=== PATIENT | male | born 1960 | race Caucasian/White ===

== ENCOUNTER 2018-12-16 18:33 | Emergency (ER) | payer MEDICAID ==
[2018-12-16] MEDS ORDERED: Sodium Chloride 0.9% 1,000 ML IV ONE (18:39)
--- NOTE | 2018-12-16 18:40 | EDM.PDOC ---
ED HPI GENERAL MEDICAL PROBLEM - General Stated Complaint: disoriented Time Seen by Provider: 12/16/18 18:33 Source of Information: Reports: Patient, EMS, Family (girlfriend ) History Limitations: Reports: Altered Mental Status - History of Present Illness INITIAL COMMENTS - FREE TEXT/NARRATIVE: 58 y.o.w.m with a H/O IDDM came by EMS to the ed deu to confusion, weakness, double vision. Pt is noncompliant with is meds. He did not take his meds for 3 days because he does not like them. Pt is oriented X 2 only, Pt is a poor historian, lives by himself, no family is present. No N/V/D, no CP or SOB or any other acute medical issues BP 144/84 Pulse 99 Pulse ox 96% on RA RR 18 Temp 36.3 Onset Date: 12/16/18 Onset Time: 16:00 Duration: Hour(s): Location: Reports: Generalized Quality: Reports: Other (disoriented) Severity: Moderate Improves with: Reports: None Worsens with: Reports: None Context: Reports: Other (IDDM) Associated Symptoms: Reports: Confusion - Related Data Allergies Allergy/AdvReac Type Severity Reaction Status Date / Time No Known Allergies Allergy Verified 12/16/18 18:47 Home Meds: Home Meds .Insulin 1 unit SUBCUT ASDIRECTED 12/16/18 [History] .Lipitor 1 tab PO ASDIRECTED 12/16/18 [History] Lurasidone HCl [Latuda] 40 mg PO DAILY 12/16/18 [History] OLANZapine [ZyPREXA Zydis] 10 mg PO DAILY 12/16/18 [History] PARoxetine HCl [Paxil] 40 mg PO DAILY 12/16/18 [History] busPIRone HCl [Buspirone HCl] 15 mg PO DAILY 12/16/18 [History] traZODone HCl [Trazodone HCl] 50 mg PO DAILY 12/16/18 [History] ED ROS GENERAL - Review of Systems Review Of Systems: Unable To Obtain (confused) ED EXAM, GENERAL - Physical Exam Exam: See Below Exam Limited By: Altered Mental Status General Appearance: Alert, Mild Distress, Obese Eye Exam: Bilateral Eye: Normal Inspection Ears: Normal External Exam Ear Exam: Bilateral Ear: Auricle Normal Nose: Normal Inspection, Normal Mucosa, No Blood Throat/Mouth: Normal Lips, Normal Voice, No Airway Compromise Head: Atraumatic, Normocephalic Neck: Normal Inspection, Supple, Non-Tender Respiratory/Chest: No Respiratory Distress, Lungs Clear, Normal Breath Sounds, No Accessory Muscle Use, Chest Non-Tender Cardiovascular: Normal Peripheral Pulses, Regular Rate, Rhythm, No Edema, No Gallop GI/Abdominal: Normal Bowel Sounds, Soft, Non-Tender, No Organomegaly, No Abnormal Bruit, No Mass, Pelvis Stable (Male) Exam: Deferred Rectal (Males) Exam: Deferred Back Exam: Normal Inspection Extremities: Normal Inspection, Normal Range of Motion Neurological: Alert, CN II-XII Intact, Disoriented, Slow to Respond, Memory Loss Remote Events Psychiatric: Normal Affect, Normal Mood Skin Exam: Warm, Dry, Intact, Normal Color, No Rash Lymphatic: No Adenopathy EKG INTERPRETATION EKG Date: 12/16/18 Time: 18:50 Rhythm: NSR Rate (Beats/Min): 97 [place]: Normal P-Wave: Present QRS: Normal ST-T: Normal QT: Normal Comparison: NA - No Prior EKG Course - Vital Signs Text/Narrative:: 58 y.o.w.m with a H/O IDDM came by EMS to the ed deu to confusion, weakness, double vision. Pt is noncompliant with is meds. He did not take his meds for 3 days because he does not like them. Pt is oriented X 2 only, Pt is a poor historian, lives by himself, no family is present. No N/V/D, no CP or SOB or any other acute medical issues BP 144/84 Pulse 99 Pulse ox 96% on RA RR 18 Temp 36.3 PE: Morbid obese 58 y.o.w.m confused to situation Labs: Pending Impression: IDDM, Hyperglycemia, noncompliance with meds, Confused, Tachycardia , Dehydration Tx: NS Pt was signed out to Dr. Alexandre at 7 pm due to shift changes, pending labs, Tx Last Recorded V/S: Last Vital Signs Temp 36.4 C 12/16/18 20:20 Pulse 104 H 12/16/18 20:20 Resp 20 12/16/18 20:20 BP 109/72 12/16/18 20:20 Pulse Ox 94 L 12/16/18 20:20 - Orders/Labs/Meds Orders: Active Orders 24 hr Category Date Time Status Blood Glucose Check, Bedside [RC] ONETIME Care 12/16/18 19:57 Active EKG Documentation Completion [RC] ASDIRECTED Care 12/16/18 18:42 Active Head wo Cont [CT] Stat Exams 12/16/18 19:10 Taken EKG 12 Lead [EK] Routine Ther 12/16/18 18:41 Ordered Labs: Laboratory Tests 12/16/18 12/16/18 12/16/18 Range/Units 18:50 18:50 18:50 WBC 7.8 (4.5-12.0) X10-3/uL RBC 5.38 (4.30-5.75) x10(6)uL Hgb 15.7 (13.5-17.8) g/dL Hct 45.2 (30.0-51.3) % MCV 84.1 (80-96) fL MCH 29.2 (27.7-33.6) pg MCHC 34.7 (32.2-35.4) g/dL RDW 12.2 (11.5-15.5) % Plt Count 158 (125-369) X10(3)uL MPV 9.4 (7.4-10.4) fL Neut % (Auto) 79.2 (46-82) % Lymph % (Auto) 6.0 L (13-37) % [place]vert % (Auto) 14.1 H (4-12) % Eos % (Auto) 0 L (1.0-5.0) % Baso % (Auto) 1 (0-2) % Neut # (Auto) 6.2 (1.6-8.3) # Lymph # (Auto) 0.5 L (0.6-5.0) # Calvert # (Auto) 1.1 (0.0-1.3) # Eos # (Auto) 0.0 (0.0-0.8) # Baso # (Auto) 0.0 (0.0-0.2) # PT 10.9 (8.7-11.1) INR 1.12 (0.89-1.13) Sodium 135 (135-145) mmol/L Potassium 4.2 (3.5-5.3) mmol/L Chloride 100 (100-110) mmol/L Carbon Dioxide 20 L (21-32) mmol/L BUN 16 (7-18) mg/dL Creatinine 0.9 (0.70-1.30) mg/dL Est Cr Clr Drug Dosing TNP Estimated GFR (MDRD) > 60 (>60) BUN/Creatinine Ratio 17.8 (9-20) Glucose 409 H* (80-116) mg/dL POC Glucose (80-116) mg/dL Hemoglobin A1c (4.5-6.2) % Lactic Acid (0.4-2.2) mmol/L Calcium 9.0 (8.6-10.2) mg/dL Magnesium 1.5 L (1.8-2.5) mg/dL Troponin I (<0.017-0.056) ng/mL Urine Color (YELLOW) Urine Appearance (CLEAR) Urine pH (5.0-6.5) Ur Specific Snow (1.010-1.025) Urine Protein (NEGATIVE) mg/dL Urine Glucose (UA) (NORMAL) mg/dL Urine Ketones (NEGATIVE) mg/dL Urine Occult Blood (NEGATIVE) Urine Nitrite (NEGATIVE) Urine Bilirubin (NEGATIVE) Urine Urobilinogen (NEGATIVE) mg/dL Ur Leukocyte Esterase (NEGATIVE) Urine RBC (0-5) Urine WBC (0-5) Ur Squamous Epith Cells (NS,R,O) Urine Bacteria (NS) 12/16/18 12/16/18 12/16/18 Range/Units 18:50 18:50 18:50 WBC (4.5-12.0) X10-3/uL RBC (4.30-5.75) x10(6)uL Hgb (13.5-17.8) g/dL Hct (30.0-51.3) % MCV (80-96) fL MCH (27.7-33.6) pg MCHC (32.2-35.4) g/dL RDW (11.5-15.5) % Plt Count (125-369) X10(3)uL MPV (7.4-10.4) fL Neut % (Auto) (46-82) % Lymph % (Auto) (13-37) % [place] % (Auto) (4-12) % Eos % (Auto) (1.0-5.0) % Baso % (Auto) (0-2) % Neut # (Auto) (1.6-8.3) # Lymph # (Auto) (0.6-5.0) # Calvert # (Auto) (0.0-1.3) # Eos # (Auto) (0.0-0.8) # Baso # (Auto) (0.0-0.2) # PT (8.7-11.1) INR (0.89-1.13) Sodium (135-145) mmol/L Potassium (3.5-5.3) mmol/L Chloride (100-110) mmol/L Carbon Dioxide (21-32) mmol/L BUN (7-18) mg/dL Creatinine (0.70-1.30) mg/dL Est Cr Clr Drug Dosing Estimated GFR (MDRD) (>60) BUN/Creatinine Ratio (9-20) Glucose (80-116) mg/dL POC Glucose (80-116) mg/dL Hemoglobin A1c 10.3 H (4.5-6.2) % Lactic Acid 1.4 (0.4-2.2) mmol/L Calcium (8.6-10.2) mg/dL Magnesium (1.8-2.5) mg/dL Troponin I < 0.017 L (<0.017-0.056) ng/mL Urine Color (YELLOW) Urine Appearance (CLEAR) Urine pH (5.0-6.5) Ur Specific Snow (1.010-1.025) Urine Protein (NEGATIVE) mg/dL Urine Glucose (UA) (NORMAL) mg/dL Urine Ketones (NEGATIVE) mg/dL Urine Occult Blood (NEGATIVE) Urine Nitrite (NEGATIVE) Urine Bilirubin (NEGATIVE) Urine Urobilinogen (NEGATIVE) mg/dL Ur Leukocyte Esterase (NEGATIVE) Urine RBC (0-5) Urine WBC (0-5) Ur Squamous Epith Cells (NS,R,O) Urine Bacteria (NS) 12/16/18 12/16/18 Range/Units 19:40 19:57 WBC (4.5-12.0) X10-3/uL RBC (4.30-5.75) x10(6)uL Hgb (13.5-17.8) g/dL Hct (30.0-51.3) % MCV (80-96) fL MCH (27.7-33.6) pg MCHC (32.2-35.4) g/dL RDW (11.5-15.5) % Plt Count (125-369) X10(3)uL MPV (7.4-10.4) fL Neut % (Auto) (46-82) % Lymph % (Auto) (13-37) % [place] % (Auto) (4-12) % Eos % (Auto) (1.0-5.0) % Baso % (Auto) (0-2) % Neut # (Auto) (1.6-8.3) # Lymph # (Auto) (0.6-5.0) # [place] # (Auto) (0.0-1.3) # Eos # (Auto) (0.0-0.8) # Baso # (Auto) (0.0-0.2) # PT (8.7-11.1) INR (0.89-1.13) Sodium (135-145) mmol/L Potassium (3.5-5.3) mmol/L Chloride (100-110) mmol/L Carbon Dioxide (21-32) mmol/L BUN (7-18) mg/dL Creatinine (0.70-1.30) mg/dL Est Cr Clr Drug Dosing Estimated GFR (MDRD) (>60) BUN/Creatinine Ratio (9-20) Glucose (80-116) mg/dL POC Glucose 297 H (80-116) mg/dL Hemoglobin A1c (4.5-6.2) % Lactic Acid (0.4-2.2) mmol/L Calcium (8.6-10.2) mg/dL Magnesium (1.8-2.5) mg/dL Troponin I (<0.017-0.056) ng/mL Urine Color Yellow (YELLOW) Urine Appearance Clear (CLEAR) Urine pH 5.0 (5.0-6.5) Ur Specific Snow 1.015 (1.010-1.025) Urine Protein Negative (NEGATIVE) mg/dL Urine Glucose (UA) >1000 H (NORMAL) mg/dL Urine Ketones 50 H (NEGATIVE) mg/dL Urine Occult Blood Negative (NEGATIVE) Urine Nitrite Negative (NEGATIVE) Urine Bilirubin Negative (NEGATIVE) Urine Urobilinogen Normal (NEGATIVE) mg/dL Ur Leukocyte Esterase Negative (NEGATIVE) Urine RBC 0-5 (0-5) Urine WBC 0-5 (0-5) Ur Squamous Epith Cells Rare (NS,R,O) Urine Bacteria Rare H (NS) Meds: Medications Discontinued Medications Generic Name Dose Route Start Last Admin Trade Name Lavelle PRN Reason Stop Dose Admin Sodium Chloride 1,000 mls @ 999 mls/hr 12/16/18 18:39 12/16/18 19:00 Normal Saline IV 12/16/18 19:39 999 mls/hr .BOLUS ONE Administration Insulin Human Regular 10 unit 12/16/18 19:09 12/16/18 19:14 Humulin R IV 12/16/18 19:10 10 units ONETIME ONE Administration Departure - Departure Time of Disposition: 21:00 Disposition: Home, Self-Care 01 Condition: Good Clinical Impression: IDDM (insulin dependent diabetes mellitus) - Discharge Information Instructions: Hyperglycemia, [id number] Referrals: Hugo Naylor MD [Primary Care Provider] - 12/18/18 Forms: ED Department Discharge Care Plan Goals: Take medications as prescribed. Follow up with primary director of healthcare systems early next week. - My Orders Last 24 Hours: My Active Orders 12/16/18 18:41 EKG 12 Lead [EK] Routine 12/16/18 18:42 EKG Documentation Completion [RC] ASDIRECTED - Assessment/Plan Last 24 Hours: My Active Orders 12/16/18 18:41 EKG 12 Lead [EK] Routine 12/16/18 18:42 EKG Documentation Completion [RC] ASDIRECTED
[2018-12-16] MEDS ORDERED: Insulin Regular, Human 100 Units/ML 3 ML Vial IV ONE (19:09)
[2018-12-16 19:10] LABS: HEMOGLOBIN A1C 10.3 % (4.5-6.2)
--- NOTE | 2018-12-16 20:54 | ER ---
DATE SEEN: 12/16/2018 REASON FOR VISIT: Alteration of mental status. HISTORY OF PRESENT ILLNESS: Sharan is a 58-year-old who was seen by Dr. Hutchins. He walked in here because his girlfriend thought he has been confused. He himself complains he feels weak in the legs and was unable to support himself and was stumbling at home. Sharan has a history of type 2 diabetes, poorly controlled, and has not been taking his medications. He also has a history of bipolar disorder and depression on several medications. He has a mild headache, mild cough, but denies fever. Neither does he have any chest pain or shortness of breath. SOCIAL HISTORY: He quit smoking years ago. He drinks occasionally. ALLERGIES: No known allergies. PAST MEDICAL HISTORY: [facility] PHYSICAL EXAMINATION: GENERAL: When I examined him, he is not in distress. VITAL SIGNS: Initial blood pressure is normal, pulse 98, temperature 97.4. HEENT: Head: Normal size. Eyes: PERRL. NECK: Supple. CHEST: Clear. CARDIOVASCULAR: Normal. EXTREMITIES: No edema. MENTAL STATUS: Alert. Dysthymic affect. No signs of abhishek. No hallucinations. LABORATORY DATA: He had a blood glucose of 409. Hemoglobin A1c of 10.3, CO2 of 20. White cell count was normal. DIAGNOSTIC DATA: CT of the head pending, thought to be normal. IMPRESSION: 1. Generalized weakness. 2. Hyperglycemia. 3. Bipolar disorder. PLAN: 2 L of normal saline was given. Insulin was given at 10 units. Glucose came down to 297. I will have him walk in the [place] and he was stable and I discharged him in the company of his girlfriend to follow up with Dr. Naylor on Tuesday. Return to the ED with any worsening symptoms. /[id number] ANTONIO/FAIZA
== END 2018-12-16 20:40 | disposition home or self-care (01) ==
LOC: FB.ED 18:33
DX: E11.65 Type 2 diabetes mellitus with hyperglycemia (principal); E86.0 Dehydration; E66.01 Morbid (severe) obesity due to excess calories; R00.0 Tachycardia, unspecified; Z79.899 Other long term (current) drug therapy; Z91.14 Patient's other noncompliance with medication regimen; Z79.4 Long term (current) use of insulin
CPT/HCPCS: 36415; 70450; 80048; 81001; 82962; 83036; 83605; 83735; 84484; 85025; 85610; 93005; 96361; 96374; 99285-25; J1815-GY; J7030

== ENCOUNTER 2020-06-24 09:45 | Inpatient (IN) | payer MEDICAID ==
[2020-06-24] MEDS ORDERED: Sodium Chloride 0.9% 1,000 ML IV ONE ×2 (10:10→18:00)
[2020-06-24] MEDS ORDERED: Sodium Chloride 0.9% 1,000 ML IV SCH ×2 (10:15→11:46)
[2020-06-24 10:32] LABS: HEMOGLOBIN A1C 10.3 % (<5.7)
--- NOTE | 2020-06-24 10:35 | EDM.PDOC ---
ED HPI GENERAL MEDICAL PROBLEM - General Chief Complaint: Abdominal Pain Stated Complaint: NAUSEA,VOMITING Time Seen by Provider: 06/24/20 10:00 Source of Information: Reports: Patient History Limitations: Reports: No Limitations - History of Present Illness INITIAL COMMENTS - FREE TEXT/NARRATIVE: Sharan comes into [facility] with a 3 day hx of lower abdominal pain radiating into the chest, associated with bouts of nausea and vomiting of dark emeses. Sxs were of gradual onset, suprapubic with some back pain, escalating into the chest over time. There has been no diarrhea, voiding sxs, palpitations, SOB, or sxs of GERD. He is a Type II DM on insulin, with no prior abdominal surgery. Treatments PROGRAM ARRANGER: Reports: IV/IO Abdominal Pain Score (Numeric/FACES): 9 - Related Data Allergies Allergy/AdvReac Type Severity Reaction Status Date / Time No Known Allergies Allergy Verified 06/24/20 09:56 Home Meds: Home Meds Lurasidone HCl [Latuda] 40 mg PO DAILY 12/16/18 [History] PARoxetine HCl [Paxil] 40 mg PO DAILY 12/16/18 [History] busPIRone HCl [Buspirone HCl] 15 mg PO DAILY 12/16/18 [History] traZODone HCl [Trazodone HCl] 100 mg PO BEDTIME 12/16/18 [History] Albuterol [Ventolin HFA] 2 puff Q4HR PRN 06/24/20 [History] Insulin NPH Hum/Reg Insulin Hm [Novolin 70-30 Flexpen] 10 unit SQ QPM 06/24/20 [History] Insulin NPH Hum/Reg Insulin Hm [Novolin 70-30 Flexpen] 20 unit SQ DAILY 06/24/20 [History] OLANZapine [Zyprexa] 10 mg PO DAILY 06/24/20 [History] atorvaSTATin Calcium [Lipitor] 40 mg PO DAILY 06/24/20 [History] lisinopriL [Lisinopril] 5 mg PO DAILY 06/24/20 [History] metFORMIN [Glucophage] 1,000 mg PO BIDMEALS 06/24/20 [History] Past Medical History HEENT History: Reports: Impaired Vision Respiratory History: Reports: Bronchitis, Recurrent Psychiatric History: Reports: Depression Endocrine/Metabolic History: Reports: Diabetes, Type I Social & Family History - Family History Family Medical History: Noncontributory - Caffeine Use Caffeine Use: Reports: None ED ROS GENERAL - Review of Systems Review Of Systems: See Below Constitutional: Reports: Malaise, Weakness, Decreased Appetite HEENT: Reports: No Symptoms Respiratory: Reports: No Symptoms Cardiovascular: Reports: Chest Pain Endocrine: Reports: Fatigue, High Glucose GI/Abdominal: Reports: Abdominal Pain, Anorexia, Decreased Appetite, Nausea, Vomiting : Reports: No Symptoms Musculoskeletal: Reports: Back Pain Skin: Reports: No Symptoms Neurological: Reports: No Symptoms Psychiatric: Reports: No Symptoms Hematologic/Lymphatic: Reports: No Symptoms Immunologic: Reports: No Symptoms ED EXAM, GI/ABD - Physical Exam Exam: See Below Exam Limited By: No Limitations General Appearance: Alert, WD/WN, Mild Distress Eyes: Bilateral: Normal Appearance, EOMI Ears: Normal External Exam Nose: Normal Inspection Throat/Mouth: Normal Inspection, Normal Oropharynx, Normal Voice, No Airway Compromise Head: Normocephalic Neck: Normal Inspection, Supple, Non-Tender Respiratory/Chest: Lungs Clear, Normal Breath Sounds, Chest Non-Tender Cardiovascular: Normal Peripheral Pulses, Regular Rate, Rhythm, No Murmur GI/Abdominal Exam: No Organomegaly, No Mass, Distended, Guarding (R abdomen tenderness without rebound or rigidity; tenderness over McBurney's point), Abnormal Bowel Sounds (decreased) (Male) Exam: Normal Inspection, Normal Prostate Rectal (Males) Exam: Normal Exam, Prostate Normal Back Exam: Normal Inspection Extremities: Normal Inspection Neurological: Alert, Oriented, CN II-XII Intact, No Motor/Sensory Deficits Psychiatric: Normal Affect, Flat Affect Skin Exam: Warm, Dry, Intact, Normal Color, No Rash Lymphatic: No Adenopathy Course - Vital Signs Text/Narrative:: Following assessment, an IV was started in the LUE, and 1.5 L NS was administered over the next 2 hours. Labs included: Hgb 16.9 gm, WBC 22,200 with L shift, plts adequate; Cr 1.3, BUN 14, nonFBS 523 mg%, Aic 10.3; lactic a 3.4, CRP 16.9, ALT mildly elevated; UA 4+ glucose; Covid 19 Screen NEG; Abd US: GB enlarged with stones and some pericholic fluid; Abd Pelvic CT w IV contrast: GB enlarged with some limited stranding, CD normal size; IV Humulin Insulin 10 U and 8 U divided over 2 hours to control DM; Dr Hernandez contacted with case and will assume care. Last Recorded V/S: Last Vital Signs Temp 36.7 C 06/24/20 11:06 Pulse 107 H 06/24/20 11:06 Resp 20 06/24/20 11:06 BP 157/78 H 06/24/20 11:06 Pulse Ox 97 06/24/20 11:06 - Orders/Labs/Meds Orders: Active Orders 24 hr Category Date Time Status Patient Status Manage Transfer [TRANSFER] Routine ADT 06/24/20 13:13 Ordered EKG Documentation Completion [RC] ASDIRECTED Care 06/24/20 10:11 Active Shabazz Catheter Insertion [Insert Urinary Catheter] [OM. Care 06/24/20 10:45 Ordered PC] Q24H Urinary Catheter Assessment [RC] QSHIFT Care 06/24/20 10:38 Active Abdomen Ltd [US] Stat Exams 06/24/20 11:50 Taken CULTURE BLOOD [BC] Urgent Lab 06/24/20 10:53 Ordered CULTURE BLOOD [BC] Urgent Lab 06/24/20 10:53 Ordered Dextrose 50% in Water Med 06/24/20 10:36 Active 50 ml IVPUSH ASDIRECTED PRN Dextrose 50% in Water Med 06/24/20 12:01 Active 50 ml IVPUSH ASDIRECTED PRN Glucagon,Human Recombinant [GlucaGen] Med 06/24/20 10:36 Active 1 mg IM ASDIRECTED PRN Glucagon,Human Recombinant [GlucaGen] Med 06/24/20 12:01 Active 1 mg IM ASDIRECTED PRN Piperacillin/Tazobactam [Zosyn] 3.375 gm Med 06/24/20 13:15 Active Sodium Chloride 0.9% [Normal Saline] 50 ml IV Q6H Piperacillin/Tazobactam [Zosyn] 3.375 gm Med 06/24/20 19:15 Active Sodium Chloride 0.9% [Normal Saline] 50 ml IV Q6H Sodium Chloride 0.9% [Normal Saline] 1,000 ml Med 06/24/20 11:46 Active IV ASDIRECTED Sodium Chloride 0.9% [Saline Flush] Med 06/24/20 10:10 Active 10 ml FLUSH ASDIRECTED PRN Blood Culture x2 Reflex Set [OM.PC] Urgent Oth 06/24/20 10:53 Ordered Peripheral IV Insertion Adult [OM.PC] Routine Oth 06/24/20 10:10 Ordered EKG 12 Lead [EK] Routine Ther 06/24/20 10:10 Ordered Medication Orders Dextrose/Water (Dextrose 50% In Water) 50 ml IVPUSH ASDIRECTED PRN PRN Reason: Hypoglycemia Dextrose/Water (Dextrose 50% In Water) 50 ml IVPUSH ASDIRECTED PRN PRN Reason: Hypoglycemia Glucagon (Glucagen) 1 mg IM ASDIRECTED PRN PRN Reason: Hypoglycemia Glucagon (Glucagen) 1 mg IM ASDIRECTED PRN PRN Reason: Hypoglycemia Sodium Chloride (Normal Saline) 1,000 mls @ 250 mls/hr IV ASDIRECTED CRISTINA Last Admin: 06/24/20 11:50 Dose: 250 mls/hr Documented by: FATUMA Piperacillin Sod/Tazobactam (Sod 3.375 gm/ Sodium Chloride) 50 mls @ 100 mls/hr IV Q6H CRISTINA Piperacillin Sod/Tazobactam (Sod 3.375 gm/ Sodium Chloride) 50 mls @ 100 mls/hr IV Q6H CRISTINA Sodium Chloride (Saline Flush) 10 ml FLUSH ASDIRECTED PRN PRN Reason: Keep Vein Open Last Admin: 06/24/20 11:38 Dose: 10 ml Documented by: FATUMA Labs: Laboratory Tests 06/24/20 06/24/20 06/24/20 Range/Units 09:55 09:57 09:57 WBC 22.2 H (4.5-12.0) X10-3/uL RBC 5.86 H (4.30-5.75) x10(6)uL Hgb 16.9 (13.5-17.8) g/dL Hct 50.6 (30.0-51.3) % MCV 86.3 (80-96) fL MCH 28.8 (27.7-33.6) pg MCHC 33.4 (32.2-35.4) g/dL RDW 12.4 (11.5-15.5) % Plt Count 241 (125-369) X10(3)uL MPV 9.8 (7.4-10.4) fL Add Manual Diff Yes Neutrophils % (Manual) 84 H (46-82) % Band Neutrophils % 4 (0-6) % Lymphocytes % (Manual) 6 L (13-37) % Monocytes % (Manual) 6 (4-12) % Sodium 133 L (135-145) mmol/L Potassium 4.9 (3.5-5.3) mmol/L Chloride 94 L D (100-110) mmol/L Carbon Dioxide 17 L (21-32) mmol/L BUN 14 (7-18) mg/dL Creatinine 1.3 (0.70-1.30) mg/dL Est Cr Clr Drug Dosing 54.53 mL/min Estimated GFR (MDRD) 56 L (>60) BUN/Creatinine Ratio 10.8 (9-20) Glucose 523 H* D (80-116) mg/dL POC Glucose (74-100) mg/dL Hemoglobin A1c (<5.7) % Lactic Acid (0.4-2.0) mmol/L Calcium 10.7 H (8.6-10.2) mg/dL Total Bilirubin 1.1 (0.1-1.3) mg/dL AST 15 (5-25) IU/L ALT 39 H (12-36) U/L Alkaline Phosphatase 97 (56-112) IU/L Troponin I (4.0-60.3) pg/mL C-Reactive Protein (0.5-0.9) mg/dL Total Protein 7.6 (6.0-8.0) g/dL Albumin 3.9 (3.2-4.6) g/dL Globulin 3.7 g/dL Albumin/Globulin Ratio 1.1 Lipase 93 (73-393) U/L Urine Color (YELLOW) Urine Appearance (CLEAR) Urine pH (5.0-6.5) Ur Specific Brilliant (1.010-1.025) Urine Protein (NEGATIVE) mg/dL Urine Glucose (UA) (NORMAL) mg/dL Urine Ketones (NEGATIVE) mg/dL Urine Occult Blood (NEGATIVE) Urine Nitrite (NEGATIVE) Urine Bilirubin (NEGATIVE) Urine Urobilinogen (NEGATIVE) mg/dL Ur Leukocyte Esterase (NEGATIVE) Urine RBC (0-5) Urine WBC (0-5) Ur Squamous Epith Cells (NS,R,O) Urine Bacteria (NS) SARS-CoV-2 RNA (NANCY) (NEGATIVE) 06/24/20 06/24/20 06/24/20 Range/Units 09:57 09:57 09:57 WBC (4.5-12.0) X10-3/uL RBC (4.30-5.75) x10(6)uL Hgb (13.5-17.8) g/dL Hct (30.0-51.3) % MCV (80-96) fL MCH (27.7-33.6) pg MCHC (32.2-35.4) g/dL RDW (11.5-15.5) % Plt Count (125-369) X10(3)uL MPV (7.4-10.4) fL Add Manual Diff Neutrophils % (Manual) (46-82) % Band Neutrophils % (0-6) % Lymphocytes % (Manual) (13-37) % Monocytes % (Manual) (4-12) % Sodium (135-145) mmol/L Potassium (3.5-5.3) mmol/L Chloride (100-110) mmol/L Carbon Dioxide (21-32) mmol/L BUN (7-18) mg/dL Creatinine (0.70-1.30) mg/dL Est Cr Clr Drug Dosing mL/min Estimated GFR (MDRD) (>60) BUN/Creatinine Ratio (9-20) Glucose (80-116) mg/dL POC Glucose (74-100) mg/dL Hemoglobin A1c 10.3 H (<5.7) % Lactic Acid 3.4 H* (0.4-2.0) mmol/L Calcium (8.6-10.2) mg/dL Total Bilirubin (0.1-1.3) mg/dL AST (5-25) IU/L ALT (12-36) U/L Alkaline Phosphatase (56-112) IU/L Troponin I 4.5 (4.0-60.3) pg/mL C-Reactive Protein 16.9 H* (0.5-0.9) mg/dL Total Protein (6.0-8.0) g/dL Albumin (3.2-4.6) g/dL Globulin g/dL Albumin/Globulin Ratio Lipase (73-393) U/L Urine Color (YELLOW) Urine Appearance (CLEAR) Urine pH (5.0-6.5) Ur Specific Brilliant (1.010-1.025) Urine Protein (NEGATIVE) mg/dL Urine Glucose (UA) (NORMAL) mg/dL Urine Ketones (NEGATIVE) mg/dL Urine Occult Blood (NEGATIVE) Urine Nitrite (NEGATIVE) Urine Bilirubin (NEGATIVE) Urine Urobilinogen (NEGATIVE) mg/dL Ur Leukocyte Esterase (NEGATIVE) Urine RBC (0-5) Urine WBC (0-5) Ur Squamous Epith Cells (NS,R,O) Urine Bacteria (NS) SARS-CoV-2 RNA (NANCY) (NEGATIVE) 06/24/20 06/24/20 06/24/20 Range/Units 10:40 10:50 11:48 WBC (4.5-12.0) X10-3/uL RBC (4.30-5.75) x10(6)uL Hgb (13.5-17.8) g/dL Hct (30.0-51.3) % MCV (80-96) fL MCH (27.7-33.6) pg MCHC (32.2-35.4) g/dL RDW (11.5-15.5) % Plt Count (125-369) X10(3)uL MPV (7.4-10.4) fL Add Manual Diff Neutrophils % (Manual) (46-82) % Band Neutrophils % (0-6) % Lymphocytes % (Manual) (13-37) % Monocytes % (Manual) (4-12) % Sodium (135-145) mmol/L Potassium (3.5-5.3) mmol/L Chloride (100-110) mmol/L Carbon Dioxide (21-32) mmol/L BUN (7-18) mg/dL Creatinine (0.70-1.30) mg/dL Est Cr Clr Drug Dosing mL/min Estimated GFR (MDRD) (>60) BUN/Creatinine Ratio (9-20) Glucose (80-116) mg/dL POC Glucose 368 H (74-100) mg/dL Hemoglobin A1c (<5.7) % Lactic Acid (0.4-2.0) mmol/L Calcium (8.6-10.2) mg/dL Total Bilirubin (0.1-1.3) mg/dL AST (5-25) IU/L ALT (12-36) U/L Alkaline Phosphatase (56-112) IU/L Troponin I (4.0-60.3) pg/mL C-Reactive Protein (0.5-0.9) mg/dL Total Protein (6.0-8.0) g/dL Albumin (3.2-4.6) g/dL Globulin g/dL Albumin/Globulin Ratio Lipase (73-393) U/L Urine Color Yellow (YELLOW) Urine Appearance Clear (CLEAR) Urine pH 5.0 (5.0-6.5) Ur Specific Brilliant 1.020 (1.010-1.025) Urine Protein Negative (NEGATIVE) mg/dL Urine Glucose (UA) >1000 H (NORMAL) mg/dL Urine Ketones 50 H (NEGATIVE) mg/dL Urine Occult Blood Negative (NEGATIVE) Urine Nitrite Negative (NEGATIVE) Urine Bilirubin Negative (NEGATIVE) Urine Urobilinogen Normal (NEGATIVE) mg/dL Ur Leukocyte Esterase Negative (NEGATIVE) Urine RBC 0-5 (0-5) Urine WBC 0-5 (0-5) Ur Squamous Epith Cells Rare (NS,R,O) Urine Bacteria Not seen (NS) SARS-CoV-2 RNA (NANCY) Negative (NEGATIVE) Meds: Medications Generic Name Dose Route Start Last Admin Trade Name Freq PRN Reason Stop Dose Admin Dextrose/Water 50 ml 06/24/20 10:36 Dextrose 50% In Water IVPUSH ASDIRECTED PRN Hypoglycemia Dextrose/Water 50 ml 06/24/20 12:01 Dextrose 50% In Water IVPUSH ASDIRECTED PRN Hypoglycemia Glucagon 1 mg 06/24/20 10:36 Glucagen IM ASDIRECTED PRN Hypoglycemia Glucagon 1 mg 06/24/20 12:01 Glucagen IM ASDIRECTED PRN Hypoglycemia Sodium Chloride 1,000 mls @ 250 mls/hr 06/24/20 11:46 06/24/20 11:50 Normal Saline IV 250 mls/hr ASDIRECTED CRISTINA Administration Piperacillin Sod/Tazobactam 50 mls @ 100 mls/hr 06/24/20 13:15 Sod 3.375 gm/ Sodium Chloride IV Q6H CRISTINA Piperacillin Sod/Tazobactam 50 mls @ 100 mls/hr 06/24/20 19:15 Sod 3.375 gm/ Sodium Chloride IV Q6H CRISTINA Sodium Chloride 10 ml 06/24/20 10:10 06/24/20 11:38 Saline Flush FLUSH 10 ml ASDIRECTED PRN Administration Keep Vein Open Discontinued Medications Generic Name Dose Route Start Last Admin Trade Name Freq PRN Reason Stop Dose Admin Hydromorphone HCl 2 mg 06/24/20 13:03 Dilaudid IVPUSH 06/24/20 13:04 ONETIME ONE Sodium Chloride 1,000 mls @ 999 mls/hr 06/24/20 10:15 Normal Saline IV ASDIRECTED CRISTINA Sodium Chloride 1,000 mls @ 999 mls/hr 06/24/20 10:10 06/24/20 10:10 Normal Saline IV 06/24/20 11:10 999 mls/hr .BOLUS ONE Administration Insulin Human Regular 10 unit 06/24/20 10:36 06/24/20 10:55 Humulin R IV 06/24/20 10:37 10 units ONETIME ONE Administration Insulin Human Regular 8 unit 06/24/20 12:01 Humulin R IV 06/24/20 12:02 ONETIME ONE Iopamidol 100 ml 06/24/20 11:01 06/24/20 11:30 Isovue-370 (76%) IV 06/24/20 11:02 100 ml . DIRECTED ONE Administration Departure - Departure Time of Disposition: 13:17 Disposition: Admitted As Inpatient 66 Condition: Fair Clinical Impression: Cholecystitis, acute with cholelithiasis Qualifiers: Biliary obstruction: without biliary obstruction Qualified Code(s): K80.00 - C alculus of gallbladder with acute cholecystitis without obstruction - Discharge Information *PRESCRIPTION DRUG MONITORING PROGRAM REVIEWED*: Not Applicable *COPY OF PRESCRIPTION DRUG MONITORING REPORT IN PATIENT TATUM: Not Applicable Referrals: Hugo Naylor MD [Primary Care Provider] - Forms: ED Department Discharge Sepsis Event Note (ED) - Evaluation Sepsis Screening Result: Possible Severe Sepsis Risk - Focused Exam Vital Signs: Vital Signs Temp Temp Pulse Resp BP Pulse Ox 06/24/20 11:06 36.7 C 107 H 20 157/78 H 97 06/24/20 10:25 37.3 C 108 H 20 152/94 H 97 06/24/20 09:45 36.7 C 114 H 20 138/83 98 - Problem List & Annotations (1) IDDM (insulin dependent diabetes mellitus) SNOMED Code(s): 06840691 Code(s): E11.9 - TYPE 2 DIABETES MELLITUS WITHOUT COMPLICATIONS; Z79.4 - [employer] ADVANCED (CURRENT) USE OF INSULIN Status: Acute Current Visit: No Annotation/Comment:: Monitor BS, add Insulin as directed (2) Cholecystitis, acute with cholelithiasis SNOMED Code(s): 39973967 Code(s): K80.00 - CALCULUS OF GALLBLADDER W ACUTE CHOLECYST W/O OBSTRUCTION Status: Acute Current Visit: Yes Annotation/Comment:: Per General Surgery Qualifiers: Biliary obstruction: without biliary obstruction Qualified Code(s): K80.00 - Calculus of gallbladder with acute cholecystitis without obstruction - Problem List Review Problem List Initiated/Reviewed/Updated: Yes - My Orders Last 24 Hours: My Active Orders 06/24/20 10:10 Sodium Chloride 0.9% [Saline Flush] 10 ml FLUSH ASDIRECTED PRN Peripheral IV Insertion Adult [OM.PC] Routine EKG 12 Lead [EK] Routine 06/24/20 10:11 EKG Documentation Completion [RC] ASDIRECTED 06/24/20 10:36 Dextrose 50% in Water 50 ml IVPUSH ASDIRECTED PRN Glucagon,Human Recombinant [GlucaGen] 1 mg IM ASDIRECTED PRN 06/24/20 10:38 Urinary Catheter Assessment [RC] QSHIFT 06/24/20 10:45 Shabazz Catheter Insertion [Insert Urinary Catheter] [OM.PC] Q24H 06/24/20 10:53 CULTURE BLOOD [BC] Urgent CULTURE BLOOD [BC] Urgent Blood Culture x2 Reflex Set [OM.PC] Urgent 06/24/20 11:46 Sodium Chloride 0.9% [Normal Saline] 1,000 ml IV ASDIRECTED 06/24/20 11:50 Abdomen Ltd [US] Stat 06/24/20 12:01 Dextrose 50% in Water 50 ml IVPUSH ASDIRECTED PRN Glucagon,Human Recombinant [GlucaGen] 1 mg IM ASDIRECTED PRN 06/24/20 13:13 Patient Status Manage Transfer [TRANSFER] Routine - Assessment/Plan Last 24 Hours: My Active Orders 06/24/20 10:10 Sodium Chloride 0.9% [Saline Flush] 10 ml FLUSH ASDIRECTED PRN Peripheral IV Insertion Adult [OM.PC] Routine EKG 12 Lead [EK] Routine 06/24/20 10:11 EKG Documentation Completion [RC] ASDIRECTED 06/24/20 10:36 Dextrose 50% in Water 50 ml IVPUSH ASDIRECTED PRN Glucagon,Human Recombinant [GlucaGen] 1 mg IM ASDIRECTED PRN 06/24/20 10:38 Urinary Catheter Assessment [RC] QSHIFT 06/24/20 10:45 Shabazz Catheter Insertion [Insert Urinary Catheter] [OM.PC] Q24H 06/24/20 10:53 CULTURE BLOOD [BC] Urgent CULTURE BLOOD [BC] Urgent Blood Culture x2 Reflex Set [OM.PC] Urgent 06/24/20 11:46 Sodium Chloride 0.9% [Normal Saline] 1,000 ml IV ASDIRECTED 06/24/20 11:50 Abdomen Ltd [US] Stat 06/24/20 12:01 Dextrose 50% in Water 50 ml IVPUSH ASDIRECTED PRN Glucagon,Human Recombinant [GlucaGen] 1 mg IM ASDIRECTED PRN 06/24/20 13:13 Patient Status Manage Transfer [TRANSFER] Routine Plan: Per General Surgery
[2020-06-24] MEDS ORDERED: Glucagon,Human Recombinant 1 MG Vial IM PRN ×3 (10:36→19:29)
[2020-06-24] MEDS ORDERED: 50% Dextrose in Water 50 ML Syringe IVPUSH PRN ×3 (10:36→19:29)
[2020-06-24] MEDS ORDERED: Insulin Regular, Human 100 Units/ML 3 ML Vial IV ONE ×2 (10:36→12:01)
[2020-06-24] MEDS ORDERED: Iopamidol 755 Mg/ML 100 ML Bottle IV ONE (11:01)
--- NOTE | 2020-06-24 11:04 | CR ---
INDICATION: Abdominal pain, COVID positive one month prior. CHEST ONE VIEW: An AP portable upright view of the chest 06/24/20 was compared with 04/10/20 and 04/08/20, again revealing the heart to be normal in size. The aorta is tortuous. At this time a definite active infiltrate or effusion was not identified. IMPRESSION: No acute process. MTDD
[2020-06-24] MEDS: Sodium Chloride 0.9% 10 ML Syringe FLUSH PRN (11:38)
--- NOTE | 2020-06-24 12:32 | CT ---
INDICATION: Right-sided pain, question appendicitis. CT ABDOMEN AND PELVIS WITH CONTRAST: Spiral 3.75 mm axial section were obtained through the abdomen and pelvis with 100 mL Isovue-370 at 2 mL per second with sagittal and coronal reconstructions 06/24/20 - no comparison. There is some probable minimal linear atelectatic changes in the lingula with no active infiltrate or effusion suggested. There may also be some very minimal atelectatic change at the right lower lobe although minimal active patchy infiltration is difficult to entirely exclude with this appearance. The heart did not appear enlarged. The pericardium was unremarkable. The liver had a normal appearance. The gallbladder is enlarged measuring a maximum of 10.9 cm with multiple small calculi present. There is also indistinctness of the wall of the gallbladder with pericholecystic fat stranding, especially inferiorly. The findings raise question of acute cholecystitis. This should be correlated clinically. The common bile duct was normal in caliber. The pancreas, spleen, adrenal glands, and for the most part the kidneys, appear to be normal (there is question of a moderate size calculus in a calyx of the upper pole of the right kidney measuring a maximum of approximately 6.3 mm, and a tiny probable simple cyst of the lateral cortex of the upper pole of the left kidney, as well as a possible tiny calculus in the lower pole of the left kidney). The pancreas appears normal. No retroperitoneal mass was seen. There is some retroperitoneal lymphadenopathy which is mild and nonspecific. The appendix appeared normal visualized on axial images 73 through 78, and coronal images 59 through 51. No evidence of appendicitis is noted, no abscess was seen in that area, no fat stranding was seen in that area. No evidence of bowel obstruction or free air was identified. There is some fluid in bowel loops and the stomach which is nonspecific. No additional organomegaly, mass lesions, or free fluid collections were identified in the abdomen or pelvis. Shabazz catheter is noted in place in the urinary bladder. The prostate was not enlarged. Calcifications are noted in the abdominal aorta, iliac and femoral arteries. IMPRESSION: 1. Enlarged gallbladder with calculi and some pericholecystic fat stranding, as well as suggestion of thickening of the wall, findings are compatible with acute cholecystitis and should be correlated clinically. Ultrasound of the gallbladder would be confirmatory as felt to be clinically necessary. 2. ASD. 3. Normal appearing appendix. 4. Tiny cyst upper pole left kidney and probable calculi in both kidneys - lower pole left kidney and upper pole right kidney. Report was given in person to Dr. Sierra at 1144 hours. [facility]
[2020-06-24] MEDS ORDERED: HYDROmorphone 2 MG/ML SDV IVPUSH ONE (13:03)
--- NOTE | 2020-06-24 13:11 | PCM.CONS ---
H&P History of Present Illness - General Date of Service: 06/24/20 Source of Information: Patient History Limitations: Reports: No Limitations - History of Present Illness Symptom Onset Date: 06/21/20 Location: Reports: Abdomen (RUQ) Severity: Moderate Worsens with: Reports: Eating, Movement Associated Symptoms: Reports: Loss of Appetite, Nausea/Vomiting Abdominal Pain Score (Numeric/FACES): 9 - Related Data Allergies/Adverse Reactions: Allergies Allergy/AdvReac Type Severity Reaction Status Date / Time No Known Allergies Allergy Verified 06/24/20 09:56 Home Medications: Home Meds Lurasidone HCl [Latuda] 40 mg PO DAILY 12/16/18 [History] PARoxetine HCl [Paxil] 40 mg PO DAILY 12/16/18 [History] busPIRone HCl [Buspirone HCl] 15 mg PO DAILY 12/16/18 [History] traZODone HCl [Trazodone HCl] 100 mg PO BEDTIME 12/16/18 [History] Albuterol [Ventolin HFA] 2 puff Q4HR PRN 06/24/20 [History] Insulin NPH Hum/Reg Insulin Hm [Novolin 70-30 Flexpen] 10 unit SQ QPM 06/24/20 [History] Insulin NPH Hum/Reg Insulin Hm [Novolin 70-30 Flexpen] 20 unit SQ DAILY 06/24/20 [History] OLANZapine [Zyprexa] 10 mg PO DAILY 06/24/20 [History] atorvaSTATin Calcium [Lipitor] 40 mg PO DAILY 06/24/20 [History] lisinopriL [Lisinopril] 5 mg PO DAILY 06/24/20 [History] metFORMIN [Glucophage] 1,000 mg PO BIDMEALS 06/24/20 [History] Past Medical History HEENT History: Reports: Impaired Vision Cardiovascular History: Reports: High Cholesterol, Hypertension Respiratory History: Reports: Bronchitis, Recurrent Neurological History: Reports: Concussion, Neuropathy, Diabetic Psychiatric History: Reports: Depression Endocrine/Metabolic History: Reports: Diabetes, Type I - Infectious Disease History Infectious Disease History: Reports: Measles, Mumps, Novel Coronavirus - Past Surgical History Head Surgeries/Procedures: Reports: None HEENT Surgical History: Reports: Adenoidectomy, Tonsillectomy GI Surgical History: Reports: Colonoscopy, EGD Neurological Surgical History: Reports: None Social & Family History - Family History Family Medical History: Noncontributory - Tobacco Use Tobacco Use Status *Q: Never Tobacco User - Caffeine Use Caffeine Use: Reports: None - Alcohol Use Days Per Week of Alcohol Use: 1 Number of Drinks Per Day: 2 Total Drinks Per Week: 2 - Recreational Drug Use Recreational Drug Use: No H&P Review of Systems - Review of Systems: Review Of Systems: See Below Pulmonary: Reports: No Symptoms Cardiovascular: Reports: No Symptoms Gastrointestinal: Reports: Abdominal Pain, Vomiting Genitourinary: Reports: No Symptoms Neurological: Reports: No Symptoms Exam - Exam Exam: See Below - Vital Signs Vital Signs: Last Vital Signs Temp 98.0 F 06/24/20 11:06 Pulse 107 H 06/24/20 11:06 Resp 20 06/24/20 11:06 BP 157/78 H 06/24/20 11:06 Pulse Ox 97 06/24/20 11:06 Weight: 86.183 kg - Exam General: Alert, Oriented Lungs: Clear to Auscultation, Normal Respiratory Effort Cardiovascular: Regular Rate, Regular Rhythm GI/Abdominal Exam: Tender (in RUQ). No: Hernia, Mass - Patient Data Lab Results Last 24 hrs: Laboratory Results - last 24 hr 06/24/20 06/24/20 06/24/20 Range/Units 09:55 09:57 09:57 WBC 22.2 H (4.5-12.0) X10-3/uL RBC 5.86 H (4.30-5.75) x10(6)uL Hgb 16.9 (13.5-17.8) g/dL Hct 50.6 (30.0-51.3) % MCV 86.3 (80-96) fL MCH 28.8 (27.7-33.6) pg MCHC 33.4 (32.2-35.4) g/dL RDW 12.4 (11.5-15.5) % Plt Count 241 (125-369) X10(3)uL MPV 9.8 (7.4-10.4) fL Add Manual Diff Yes Neutrophils % (Manual) 84 H (46-82) % Band Neutrophils % 4 (0-6) % Lymphocytes % (Manual) 6 L (13-37) % Monocytes % (Manual) 6 (4-12) % Sodium 133 L (135-145) mmol/L Potassium 4.9 (3.5-5.3) mmol/L Chloride 94 L D (100-110) mmol/L Carbon Dioxide 17 L (21-32) mmol/L BUN 14 (7-18) mg/dL Creatinine 1.3 (0.70-1.30) mg/dL Est Cr Clr Drug Dosing 54.53 mL/min Estimated GFR (MDRD) 56 L (>60) BUN/Creatinine Ratio 10.8 (9-20) Glucose 523 H* D (80-116) mg/dL POC Glucose (74-100) mg/dL Hemoglobin A1c (<5.7) % Lactic Acid (0.4-2.0) mmol/L Calcium 10.7 H (8.6-10.2) mg/dL Total Bilirubin 1.1 (0.1-1.3) mg/dL AST 15 (5-25) IU/L ALT 39 H (12-36) U/L Alkaline Phosphatase 97 (56-112) IU/L Troponin I (4.0-60.3) pg/mL C-Reactive Protein (0.5-0.9) mg/dL Total Protein 7.6 (6.0-8.0) g/dL Albumin 3.9 (3.2-4.6) g/dL Globulin 3.7 g/dL Albumin/Globulin Ratio 1.1 Lipase 93 (73-393) U/L Urine Color (YELLOW) Urine Appearance (CLEAR) Urine pH (5.0-6.5) Ur Specific [place] (1.010-1.025) Urine Protein (NEGATIVE) mg/dL Urine Glucose (UA) (NORMAL) mg/dL Urine Ketones (NEGATIVE) mg/dL Urine Occult Blood (NEGATIVE) Urine Nitrite (NEGATIVE) Urine Bilirubin (NEGATIVE) Urine Urobilinogen (NEGATIVE) mg/dL Ur Leukocyte Esterase (NEGATIVE) Urine RBC (0-5) Urine WBC (0-5) Ur Squamous Epith Cells (NS,R,O) Urine Bacteria (NS) SARS-CoV-2 RNA (NANCY) (NEGATIVE) 06/24/20 06/24/20 06/24/20 Range/Units 09:57 09:57 09:57 WBC (4.5-12.0) X10-3/uL RBC (4.30-5.75) x10(6)uL Hgb (13.5-17.8) g/dL Hct (30.0-51.3) % MCV (80-96) fL MCH (27.7-33.6) pg MCHC (32.2-35.4) g/dL RDW (11.5-15.5) % Plt Count (125-369) X10(3)uL MPV (7.4-10.4) fL Add Manual Diff Neutrophils % (Manual) (46-82) % Band Neutrophils % (0-6) % Lymphocytes % (Manual) (13-37) % Monocytes % (Manual) (4-12) % Sodium (135-145) mmol/L Potassium (3.5-5.3) mmol/L Chloride (100-110) mmol/L Carbon Dioxide (21-32) mmol/L BUN (7-18) mg/dL Creatinine (0.70-1.30) mg/dL Est Cr Clr Drug Dosing mL/min Estimated GFR (MDRD) (>60) BUN/Creatinine Ratio (9-20) Glucose (80-116) mg/dL POC Glucose (74-100) mg/dL Hemoglobin A1c 10.3 H (<5.7) % Lactic Acid 3.4 H* (0.4-2.0) mmol/L Calcium (8.6-10.2) mg/dL Total Bilirubin (0.1-1.3) mg/dL AST (5-25) IU/L ALT (12-36) U/L Alkaline Phosphatase (56-112) IU/L Troponin I 4.5 (4.0-60.3) pg/mL C-Reactive Protein 16.9 H* (0.5-0.9) mg/dL Total Protein (6.0-8.0) g/dL Albumin (3.2-4.6) g/dL Globulin g/dL Albumin/Globulin Ratio Lipase (73-393) U/L Urine Color (YELLOW) Urine Appearance (CLEAR) Urine pH (5.0-6.5) Ur Specific [place] (1.010-1.025) Urine Protein (NEGATIVE) mg/dL Urine Glucose (UA) (NORMAL) mg/dL Urine Ketones (NEGATIVE) mg/dL Urine Occult Blood (NEGATIVE) Urine Nitrite (NEGATIVE) Urine Bilirubin (NEGATIVE) Urine Urobilinogen (NEGATIVE) mg/dL Ur Leukocyte Esterase (NEGATIVE) Urine RBC (0-5) Urine WBC (0-5) Ur Squamous Epith Cells (NS,R,O) Urine Bacteria (NS) SARS-CoV-2 RNA (NANCY) (NEGATIVE) 06/24/20 06/24/20 06/24/20 Range/Units 10:40 10:50 11:48 WBC (4.5-12.0) X10-3/uL RBC (4.30-5.75) x10(6)uL Hgb (13.5-17.8) g/dL Hct (30.0-51.3) % MCV (80-96) fL MCH (27.7-33.6) pg MCHC (32.2-35.4) g/dL RDW (11.5-15.5) % Plt Count (125-369) X10(3)uL MPV (7.4-10.4) fL Add Manual Diff Neutrophils % (Manual) (46-82) % Band Neutrophils % (0-6) % Lymphocytes % (Manual) (13-37) % Monocytes % (Manual) (4-12) % Sodium (135-145) mmol/L Potassium (3.5-5.3) mmol/L Chloride (100-110) mmol/L Carbon Dioxide (21-32) mmol/L BUN (7-18) mg/dL Creatinine (0.70-1.30) mg/dL Est Cr Clr Drug Dosing mL/min Estimated GFR (MDRD) (>60) BUN/Creatinine Ratio (9-20) Glucose (80-116) mg/dL POC Glucose 368 H (74-100) mg/dL Hemoglobin A1c (<5.7) % Lactic Acid (0.4-2.0) mmol/L Calcium (8.6-10.2) mg/dL Total Bilirubin (0.1-1.3) mg/dL AST (5-25) IU/L ALT (12-36) U/L Alkaline Phosphatase (56-112) IU/L Troponin I (4.0-60.3) pg/mL C-Reactive Protein (0.5-0.9) mg/dL Total Protein (6.0-8.0) g/dL Albumin (3.2-4.6) g/dL Globulin g/dL Albumin/Globulin Ratio Lipase (73-393) U/L Urine Color Yellow (YELLOW) Urine Appearance Clear (CLEAR) Urine pH 5.0 (5.0-6.5) Ur Specific [place] 1.020 (1.010-1.025) Urine Protein Negative (NEGATIVE) mg/dL Urine Glucose (UA) >1000 H (NORMAL) mg/dL Urine Ketones 50 H (NEGATIVE) mg/dL Urine Occult Blood Negative (NEGATIVE) Urine Nitrite Negative (NEGATIVE) Urine Bilirubin Negative (NEGATIVE) Urine Urobilinogen Normal (NEGATIVE) mg/dL Ur Leukocyte Esterase Negative (NEGATIVE) Urine RBC 0-5 (0-5) Urine WBC 0-5 (0-5) Ur Squamous Epith Cells Rare (NS,R,O) Urine Bacteria Not seen (NS) SARS-CoV-2 RNA (NANCY) Negative (NEGATIVE) Result Diagrams: 06/24/20 09:57 06/24/20 09:57 Ángel Results Last 24 hrs: Microbiology 06/24/20 10:45 Stool Occult Blood (ÁNGEL) - Final Stool / Feces Sepsis Event Note - Evaluation Sepsis Screening Result: Possible Severe Sepsis Risk - Focused Exam Vital Signs: Vital Signs Temp Temp Pulse Resp BP Pulse Ox 06/24/20 11:06 98.0 F 107 H 20 157/78 H 97 06/24/20 10:25 99.1 F 108 H 20 152/94 H 97 06/24/20 09:45 98.1 F 114 H 20 138/83 98 Consult PN Assessment/Plan Procedures: Procedures ASSAY OF LACTIC ACID (12/16/18) ASSAY OF MAGNESIUM (12/16/18) ASSAY OF TROPONIN QUANT (12/16/18) COMPLETE CBC W/AUTO DIFF WBC (12/16/18) CT HEAD/BRAIN W/O DYE (12/16/18) ELECTROCARDIOGRAM TRACING (12/16/18) EMERGENCY DEPT VISIT (12/16/18) EMERGENCY DEPT VISIT (12/16/18) GLUCOSE BLOOD TEST (12/16/18) GLYCOSYLATED HEMOGLOBIN TEST (12/16/18) HYDRATE IV INFUSION ADD-ON (12/16/18) METABOLIC PANEL TOTAL CA (12/16/18) PROTHROMBIN TIME (12/16/18) ROUTINE VENIPUNCTURE (12/16/18) THER/PROPH/DIAG INJ IV PUSH (12/16/18) URINALYSIS AUTO W/SCOPE (12/16/18) (1) Cholecystitis, acute with cholelithiasis SNOMED Code(s): 95640937 Code(s): K80.00 - CALCULUS OF GALLBLADDER W ACUTE CHOLECYST W/O OBSTRUCTION Current Visit: Yes Problem List Initiated/Reviewed/Updated: Yes My Orders Last 24 Hours: My Active Orders 06/24/20 13:03 HYDROmorphone [Dilaudid] 2 mg IVPUSH ONETIME ONE 06/24/20 13:15 Piperacillin/Tazobactam [Zosyn] 3.375 gm Sodium Chloride 0.9% [Normal Saline] 50 ml IV Q6H Will proceed with lap radha, possible open today.Risks and complications reviewed, consent obtained.
[2020-06-24] MEDS ORDERED: Piperacillin/Tazobactam 3.375 GM in Sodium Chloride 0.9% 50 ML IV SCH (13:15)
[2020-06-24] MEDS ORDERED: Ondansetron 4 MG/2 ML SDV IVPUSH ONE ×2 (14:13→18:00)
--- NOTE | 2020-06-24 14:51 | US ---
INDICATION: Abdominal pain. Possible cholecystitis. Suspicious gallbladder on CT. RIGHT UPPER QUADRANT/GALLBLADDER ULTRASOUND: Utilizing 2-D realtime and color flow imaging as well as duplex Doppler spectral analysis, evaluation of the right upper quadrant revealed slightly echogenic appearance of the liver, raising question of fatty liver. No focal liver lesions were demonstrated. The gallbladder measured 9.6 cm x 3.5 x 3 cm with some pericholecystic fluid and slightly thickened wall, as well as a very positive ultrasonic Coronel sign at a level of 9 out of 10 with multiple calculi present in the neck of the gallbladder. Findings were felt to be compatible with acute cholecystitis and should be correlated clinically in that regard. Common bile duct was normal in caliber at 4.2 mm. IVC was phasic. Right kidney appeared normal - however - there is suggestion of an upper middle pole calculus measuring 6.3 mm on the previous CT in the right kidney. No mass lesions or additional organomegaly was seen. IMPRESSION: 1. Cholelithiasis with findings compatible with acute cholecystitis. 2. Renal lithiasis, not able to be confirmed by ultrasound suggested on CT of the same day. Report was called to Dr. Sierra at 1240 hours. [facility]
[2020-06-24] MEDS ORDERED: HYDROmorphone 2 MG/ML SDV IVPUSH PRN (17:56)
--- NOTE | 2020-06-24 17:56 | PCM.OPNOTE ---
- General Post-Op/Procedure Note Date of Surgery/Procedure: 06/24/20 Operative Procedure(s): Lap [place] Findings: Acute gangrenous Cholecystitis Pre Op Diagnosis: Acute cholecystitis and Cholelithiasis Post-Op Diagnosis: Same Anesthesia Technique: General ET Tube Primary Surgeon: Sina Hernandez Pathology: GB and bile culture EBL in mLs: 50 Complications: None Condition: Good Free Text/Narrative:: Intake & Output 06/24/20 06/24/20 06/24/20 06:59 14:59 22:59 Output Total 1250 Balance -1250
[2020-06-24] MEDS ORDERED: Rocuronium 100 MG/10 ML MDV IV ONE (18:00)
[2020-06-24] MEDS ORDERED: fentaNYL 100 MCG/2 ML SDV IV ONE (18:00)
[2020-06-24] MEDS ORDERED: Propofol 200 MG/20 ML SDV IV ONE (18:00)
[2020-06-24] MEDS ORDERED: Sugammadex Sodium 200 MG/2 ML VIAL IV ONE (18:00)
[2020-06-24] MEDS ORDERED: Naloxone 0.4 MG/ML SDV IV ONE (18:00)
[2020-06-24] MEDS ORDERED: Acetaminophen 1,000 MG/100 ML Infusion Bottle Premix IV ONE (18:00)
[2020-06-24] MEDS ORDERED: Succinylcholine 200 MG/10 ML MDV IV ONE (18:00)
[2020-06-24] MEDS ORDERED: Metoprolol Tartrate 5 MG/5 ML SDV IV ONE (18:00)
[2020-06-24] MEDS ORDERED: Lidocaine 2% 5 ML SDV INJECT ONE (18:00)
[2020-06-24] MEDS: Lactated Ringers 1,000 ML IV SCH (19:40)
[2020-06-24] MEDS: Piperacillin/Tazobactam 3.375 GM in Sodium Chloride 0.9% 50 ML IV SCH (20:02)
--- NOTE | 2020-06-24 22:45 | PCM.OPNOTE ---
- General Post-Op/Procedure Note Date of Surgery/Procedure: 06/24/20 Operative Procedure(s): Lap appy Findings: Acute appy Pre Op Diagnosis: acute Appendicitis Post-Op Diagnosis: Same Anesthesia Technique: General ET Tube Primary Surgeon: Sina Hernandez Pathology: Appy EBL in mLs: 10 Complications: None Condition: Good Free Text/Narrative:: Intake & Output 06/24/20 06/24/20 06/24/20 06:59 14:59 22:59 Output Total 1250 Balance -1250
[2020-06-25] MEDS: Acetaminophen/HYDROcodone 325-5 MG Tab PO PRN (00:13)
[2020-06-25] MEDS: Piperacillin/Tazobactam 3.375 GM in Sodium Chloride 0.9% 50 ML IV SCH ×4 (00:18→19:17)
[2020-06-25] MEDS: Lactated Ringers 1,000 ML IV SCH ×2 (04:30→16:34)
--- NOTE | 2020-06-25 08:16 | OR ---
DATE OF OPERATION: 06/24/2020 SURGEON: Sina Hernandez MD PREOPERATIVE DIAGNOSIS: Acute cholecystitis and cholelithiasis. POSTOPERATIVE DIAGNOSIS: Acute gangrenous cholecystitis and cholelithiasis. PROCEDURE: Laparoscopic cholecystectomy. ANESTHESIA: General. ESTIMATED BLOOD LOSS: 50 to 100 mL. PROCEDURE IN DETAIL: The patient was brought to the operating room, where general endotracheal anesthesia was administered. The abdomen was clipped, prepped with ChloraPrep and draped sterilely. An infraumbilical incision was made and extended into the peritoneal cavity without difficulty. The Jack cannulator was introduced and pneumoperitoneum obtained. Remaining three 5 mm ports were placed in the usual positions. The patient was placed in reverse Trendelenburg position and rotated to the left. The gallbladder was covered with omentum that was taken down with blunt dissection to expose of beefy red, thickened gallbladder with gangrene on the fundus and neck portion. This was tense and unable to be grasped, so I aspirated this with the trocar and sent the bile for culture. Gallbladder was then grasped and retracted cephalad. Thickened inflamed peritoneum was then taken down with a blunt dissection, and electrocautery. I was able to dissect out the neck of the gallbladder onto the cystic duct and separate the cystic duct from the cystic artery. Once the cystic artery anatomy was defined clearly, this was doubly clipped proximally and once distally and then transected. This allowed me to further clean off the neck of the gallbladder and cystic duct and remove some fibrous tissue so that an Endo clip could be placed across this. The cystic duct was milked back into the gallbladder, then doubly clipped proximally and once distally and then transected. The gallbladder was then removed from the bed of the liver using electrocautery with some difficulty because of thickened edema and some oozing that was controlled with electrocautery. Once the gallbladder was completely freed up, was placed in an Endopouch and brought out through the umbilical incision site. Right upper quadrant was thoroughly irrigated and inspected and return was clear and hemostasis assured. There was a lot of inflammation in the bed of the gallbladder that had been oozing, so I placed a Nu-Knit Surgicel in the gallbladder bed. The ports were removed under direct vision and remained hemostatic. Jack was removed and pneumoperitoneum evacuated completely. The umbilical fascia was closed with [id number] #0 Vicryl. Skin was closed with #4-0 Vicryl subcuticular sutures. Benzoin and Steri-Strips were placed and Band-Aids applied. The patient tolerated procedure well. He returned to postanesthesia in stable condition. /[id number] SHEEBA/FAIZA
[2020-06-25] MEDS ORDERED: Insulin Lispro 100 Unit/ML 3 ML KwikPen SUBCUT ONE (08:17)
[2020-06-25] MEDS: Insulin Lispro 100 Unit/ML 3 ML KwikPen SUBCUT SCH ×3 (08:21→18:18)
[2020-06-25] MEDS ORDERED: Piperacillin/Tazobactam 3.375 GM in Sodium Chloride 0.9% 50 ML IV SCH (08:34)
[2020-06-25] MEDS ORDERED: Albuterol 8 GM Inhaler INH PRN (08:34)
[2020-06-25] MEDS ORDERED: Insulin Lispro 100 Unit/ML 3 ML KwikPen SUBCUT SCH (08:34)
[2020-06-25] MEDS: PARoxetine 20 MG Tab PO SCH (10:25)
[2020-06-25] MEDS: OLANZapine 5 MG Tab PO SCH (10:26)
[2020-06-25] MEDS ORDERED: 50% Dextrose in Water 50 ML Syringe IVPUSH PRN (10:26)
[2020-06-25] MEDS ORDERED: Glucagon,Human Recombinant 1 MG Vial IM PRN (10:26)
[2020-06-25] MEDS ORDERED: Insulin Glargine,Human Rec. Analog 100 Units/ML 3 ML Pen SUBCUT ONE (11:40)
[2020-06-25] MEDS: Insulin Glargine,Human Rec. Analog 100 Units/ML 3 ML Pen SUBCUT SCH (11:42)
[2020-06-25] MEDS: Ondansetron 4 MG/2 ML SDV IVPUSH PRN ×2 (12:14→19:22)
[2020-06-25] MEDS: Sodium Chloride 0.9% 10 ML Syringe FLUSH PRN ×2 (12:18→13:50)
--- NOTE | 2020-06-25 13:17 | CONS ---
DATE OF CONSULTATION: 06/25/2020 REASON FOR CONSULTATION: Review of medications, care, and diabetes. HISTORY OF PRESENT ILLNESS: Sharan Canada is a 60-year-old male admitted through the ER on 06/24/2020, was seen by Dr. Chandana Sierra. Presented with 3-day history of lower abdominal pain radiating to chest, bouts of nausea and vomiting, dark emesis, and increasing discomfort. Health issues include diabetes mellitus, ongoing care. He is on a host of psychotropics. X-ray revealed no pathology, CT abdomen and pelvis revealed a large gallbladder with suspicion for cholecystitis, normal appendix, and benign kidney findings. He was found to have an acute gallbladder. He was seen by Dr. Hernandez in Surgery, underwent operative intervention on 06/24/2020. Had a very necrotic angry gallbladder. Expect a short-term stay. Sugars remain moderately elevated. MEDICATIONS: Upon admission include: 1. Atorvastatin 40 mg 1 p.o. daily, hyperlipidemia. 2. BuSpar 15 mg 1 p.o. b.i.d. 3. Novolin 70/30, 20 units in morning before breakfast, 20 before supper. 4. Metformin 1000 mg 1 p.o. b.i.d., NIDDM. 5. Albuterol 2 puffs q.i.d., breathing. 6. Latuda 40 mg 1 p.o. daily, mood stabilizer. 7. Zyprexa 10 mg daily, mood stabilizer. 8. Paroxetine 40 mg 1 p.o. daily, mood stabilizer. 9. Trazodone 50 mg at bedtime, sleep enhancement. PAST MEDICAL HISTORY: Significant for above. Issues include mood disorder, hyperlipidemia, hypertension, and diabetes mellitus. He has had by report no operative procedures, hospitalizations, unusual childhood diseases, major injuries, or fractures. ALLERGIES: No known allergies. SOCIAL HISTORY: Lives alone, retired. No alcohol. No illicit drug use. REVIEW OF SYSTEMS: Please see HPI. Diabetes has been poorly controlled by report. PHYSICAL EXAMINATION: VITAL SIGNS: 37.0, 104, 134/89, 16, 93% on 2 L. GENERAL: A bit confused and unsettled. Psychotropics not on board. HEENT: Mouth and oropharynx revealed normal mucous membranes. NECK: Benign. Thyroid small. CHEST: On auscultation, clear in all lung ramirez. HEART: On auscultation, no ectopy or murmur. ABDOMEN: Surgical sites well healed. GENITOURINARY: Shabazz catheter in place. EXTREMITIES: Well perfused. LABORATORY STUDIES: On admission, white count 98460, hemoglobin 16.9, repeat 16.8 and 14.5. Electrolytes were satisfactory. Glucose 523, 430, and 342. Lactic acid 3.4, repeat 1.2. Mildly elevated liver enzymes, ALT and AST, C- reactive protein 16.9. Urine revealed 4+ glucose. COVID negative. ASSESSMENT: Postoperative care, laparoscopic cholecystectomy, marked hyperglycemia. PLAN: We will proceed with medium dose Accu-Chek insulin, we will add 10 of Lantus for basal sugars, restart his mood stabilizers, and proceed accordingly from there. /[id number] TJ/FAIZA
[2020-06-25 13:40] LABS: PH ARTERIAL,POC 7.4 pH (7.35-7.45)
[2020-06-25 13:41] LABS: PCO2 ARTERIAL,POC 25 mmHg (35-48); PO2 ARTERIAL,POC 102 mmHg (83-108)
[2020-06-25] MEDS: busPIRone 15 MG Tab PO SCH ×2 (14:26→21:19)
[2020-06-25] MEDS ORDERED: Promethazine 12.5 MG in Sodium Chloride 0.9% 50 ML IV PRN (20:40)
[2020-06-25] MEDS: traZODone 100 MG Tab PO SCH (21:19)
[2020-06-26] MEDS: Piperacillin/Tazobactam 3.375 GM in Sodium Chloride 0.9% 50 ML IV SCH ×4 (00:28→19:12)
[2020-06-26] MEDS: Acetaminophen/HYDROcodone 325-5 MG Tab PO PRN (00:46)
[2020-06-26] MEDS: Ondansetron 4 MG/2 ML SDV IVPUSH PRN (00:47)
[2020-06-26] MEDS: Insulin Lispro 100 Unit/ML 3 ML KwikPen SUBCUT SCH ×3 (08:29→17:22)
[2020-06-26] MEDS: Insulin Glargine,Human Rec. Analog 100 Units/ML 3 ML Pen SUBCUT SCH (08:30)
[2020-06-26] MEDS: PARoxetine 20 MG Tab PO SCH (08:32)
[2020-06-26] MEDS: busPIRone 15 MG Tab PO SCH ×2 (08:32→21:38)
[2020-06-26] MEDS: OLANZapine 5 MG Tab PO SCH (08:33)
[2020-06-26] MEDS: Lactated Ringers 1,000 ML IV SCH (08:38)
[2020-06-26] MEDS ORDERED: 50% Dextrose in Water 50 ML Syringe IVPUSH PRN (10:25)
[2020-06-26] MEDS ORDERED: Glucagon,Human Recombinant 1 MG Vial IM PRN (10:25)
[2020-06-26] MEDS ORDERED: Lactated Ringers 1,000 ML IV SCH (11:00)
[2020-06-26] MEDS ORDERED: Metoclopramide 10 MG/2 ML SDV IVPUSH PRN (11:04)
--- NOTE | 2020-06-26 11:27 | PN ---
DATE SEEN: 06/26/2020 SUBJECTIVE: Sharan Canada is a 60-year-old male admitted with acute abdomen. He was found to have a markedly necrotic and diseased gallbladder. Underwent laparoscopic removal. Provider of record, Dr. Hernandez. Has been a little bit touch and go since that time. He has excessive polyphagia. Urinary output present. GI symptoms seem to have resolved. One prompted episode of emesis but without persistent issue. Pain appears to be controlled. LABORATORY STUDIES: 06/26/2020; white count now 12,600, hemoglobin 13.5. Blood gases 06/25 revealed pH 7.4, no diabetic ketoacidosis. Otherwise, doing better. Mentation is a bit of an issue in terms of orientation time and circumstances. Has had a little bit of tremors issue in taking fluids. We will proceed with medications, care and treatment, pain control, moderated activity. Sugars are improving 247 and 254 on medium dose insulin therapy. MEDICATIONS: Reviewed and appropriate, psychotropics on board, include: 1. BuSpar 15 mg 1 p.o. b.i.d. 2. Latuda 40 mg 1 p.o. daily. 3. Zyprexa 10 mg daily. 4. Paroxetine 40 mg 1 daily. 5. His IV antibiotic therapy along with trazodone 100 mg at bedtime. ASSESSMENT: 1. Laparoscopic cholecystectomy. 2. Severely diseased gallbladder. 3. Altered mental status. 4. Hyperglycemia. PLAN: Medications, care and treatment appropriate. Sugars are reasonable limits in the 200s. Has a low dose of Lantus and premeal Humalog on board. CT brain to be performed. /[id number] /ANJELL
--- NOTE | 2020-06-26 12:27 | CT ---
INDICATION: Change in mentation. CT HEAD WITHOUT CONTRAST: Spiral 3.75 mm axial sections were obtained through the brain without contrast with axial, sagittal and coronal reconstructions 06/26/20 and compared with 12/16/18. Total exam DLP was 1425.39 mGy-cm. The mastoid air cells appear well aerated. At the base of the right maxillary antrum there is thickening of the wall, with some thickening of the wall also noted more superiorly. Opacification of a few right-sided ethmoidal air cells and thickening of the lining of a few right- sided ethmoidal air cells is also noted with small retention cysts in a posterior left ethmoidal air cell and thickening of the lining minimally at the right sphenoid air cell. There is also partial opacification or an anterior left ethmoidal air cells. Findings may represent a mild degree of sinusitis and should be correlated clinically - no air-fluid levels or definite bone erosion was seen in that area. . No cranial abnormality was identified. No shift of midline structures was noted. Ventricles appear normal. No definite abnormal areas of density were identified. There is mild prominence of the cortical sulci which appears more prominent on the right suggesting a mild degree or cortical atrophy in the frontoparietal area. No bleeding site or hematoma was seen. The orbits appear to be intact. IMPRESSION: 1. No acute intracranial abnormality - fairly stable appearance of the brain compared with 12/16/18. 2. Mild cortical atrophy frontoparietal cortex. 3. Findings in paranasal sinuses may represent a mild degree of sinusitis. MTDD
[2020-06-26] MEDS: Acetaminophen 500 MG Tab PO SCH ×2 (14:30→21:38)
[2020-06-26] MEDS: Sodium Chloride 0.9% 10 ML Syringe FLUSH PRN (14:31)
--- NOTE | 2020-06-26 17:24 | PCM.PN ---
- General Info Date of Service: 06/26/20 Functional Status: Reports: Pain Controlled, Urinating - Review of Systems General: Reports: Weakness (Too weak to walk this am). Denies: Fever Pulmonary: Reports: No Symptoms Cardiovascular: Reports: No Symptoms Gastrointestinal: Reports: Nausea. Denies: Abdominal Pain, Vomiting Genitourinary: Reports: No Symptoms - Patient Data Vitals - Most Recent: Last Vital Signs Temp 98.4 F 06/26/20 04:31 Pulse 104 H 06/26/20 04:31 Resp 20 06/26/20 04:31 BP 158/92 H 06/26/20 04:31 Pulse Ox 95 06/26/20 04:31 Weight - Most Recent: 79.152 kg I&O - Last 24 Hours: Intake & Output 06/26/20 06/26/20 06/26/20 06:59 14:59 22:59 Intake Total 1488 Output Total 2100 Balance -612 Lab Results Last 24 Hours: Laboratory Results - last 24 hr 06/25/20 06/25/20 06/25/20 Range/Units 13:36 17:44 20:32 WBC (4.5-12.0) X10-3/uL RBC (4.30-5.75) x10(6)uL Hgb (13.5-17.8) g/dL Hct (30.0-51.3) % MCV (80-96) fL MCH (27.7-33.6) pg MCHC (32.2-35.4) g/dL RDW (11.5-15.5) % Plt Count (125-369) X10(3)uL MPV (7.4-10.4) fL Add Manual Diff Neutrophils % (Manual) (46-82) % Lymphocytes % (Manual) (13-37) % Monocytes % (Manual) (4-12) % Sodium (135-145) mmol/L Potassium (3.5-5.3) mmol/L Chloride (100-110) mmol/L Carbon Dioxide (21-32) mmol/L BUN (7-18) mg/dL Creatinine (0.70-1.30) mg/dL Est Cr Clr Drug Dosing mL/min Estimated GFR (MDRD) (>60) BUN/Creatinine Ratio (9-20) Glucose (80-116) mg/dL POC Glucose 297 H 247 H 254 H (74-100) mg/dL Calcium (8.6-10.2) mg/dL 06/26/20 06/26/20 06/26/20 Range/Units 06:00 06:00 06:04 WBC 12.6 H (4.5-12.0) X10-3/uL RBC 4.74 (4.30-5.75) x10(6)uL Hgb 13.5 (13.5-17.8) g/dL Hct 41.0 (30.0-51.3) % MCV 86.5 (80-96) fL MCH 28.4 (27.7-33.6) pg MCHC 32.9 (32.2-35.4) g/dL RDW 12.7 (11.5-15.5) % Plt Count 232 (125-369) X10(3)uL MPV 9.3 (7.4-10.4) fL Add Manual Diff Yes Neutrophils % (Manual) 84 H (46-82) % Lymphocytes % (Manual) 8 L (13-37) % Monocytes % (Manual) 8 (4-12) % Sodium 136 (135-145) mmol/L Potassium 4.3 (3.5-5.3) mmol/L Chloride 101 (100-110) mmol/L Carbon Dioxide 10 L* (21-32) mmol/L BUN 18 (7-18) mg/dL Creatinine 0.9 (0.70-1.30) mg/dL Est Cr Clr Drug Dosing 78.77 mL/min Estimated GFR (MDRD) > 60 (>60) BUN/Creatinine Ratio 20.0 (9-20) Glucose 322 H (80-116) mg/dL POC Glucose 277 H (74-100) mg/dL Calcium 9.6 (8.6-10.2) mg/dL 06/26/20 06/26/20 Range/Units 11:35 17:00 WBC (4.5-12.0) X10-3/uL RBC (4.30-5.75) x10(6)uL Hgb (13.5-17.8) g/dL Hct (30.0-51.3) % MCV (80-96) fL MCH (27.7-33.6) pg MCHC (32.2-35.4) g/dL RDW (11.5-15.5) % Plt Count (125-369) X10(3)uL MPV (7.4-10.4) fL Add Manual Diff Neutrophils % (Manual) (46-82) % Lymphocytes % (Manual) (13-37) % Monocytes % (Manual) (4-12) % Sodium (135-145) mmol/L Potassium (3.5-5.3) mmol/L Chloride (100-110) mmol/L Carbon Dioxide (21-32) mmol/L BUN (7-18) mg/dL Creatinine (0.70-1.30) mg/dL Est Cr Clr Drug Dosing mL/min Estimated GFR (MDRD) (>60) BUN/Creatinine Ratio (9-20) Glucose (80-116) mg/dL POC Glucose 337 H 201 H (74-100) mg/dL Calcium (8.6-10.2) mg/dL Ángel Results Last 24 Hours: Microbiology 06/24/20 14:55 Aerobic Blood Culture - Preliminary Blood - Venous - Lab Draw NO GROWTH AFTER 2 DAYS Anaerobic Blood Culture - Preliminary NO GROWTH AFTER 2 DAYS 06/24/20 14:46 Aerobic Blood Culture - Preliminary Blood - Venous NO GROWTH AFTER 2 DAYS Anaerobic Blood Culture - Preliminary NO GROWTH AFTER 2 DAYS Med Orders - Current: Current Medications Acetaminophen (Tylenol Extra Strength) 1,000 mg PO TID [facility] Last Admin: 06/26/20 14:30 Dose: 1,000 mg Documented by: Albuterol (Ventolin Hfa) 0 gm INH Q4H PRN PRN Reason: Dyspnea Buspirone HCl (Buspar) 15 mg PO BID [facility] Last Admin: 06/26/20 08:32 Dose: 15 mg Documented by: Dextrose/Water (Dextrose 50% In Water) 50 ml IVPUSH ASDIRECTED PRN PRN Reason: Hypoglycemia Glucagon (Glucagen) 1 mg IM ASDIRECTED PRN PRN Reason: Hypoglycemia Piperacillin Sod/Tazobactam (Sod 3.375 gm/ Sodium Chloride) 50 mls @ 100 mls/hr IV Q6H [facility] Last Admin: 06/26/20 14:02 Dose: 100 mls/hr Documented by: Promethazine HCl 12.5 mg/ (Sodium Chloride) 50.5 mls @ 200 mls/hr IV Q6H PRN PRN Reason: Nausea/Vomiting Insulin Glargine (Lantus Solostar) 16 units SUBCUT DAILY [facility] Insulin Human Lispro (Humalog) 0 unit SUBCUT TIDMEALS [facility]; Protocol Last Admin: 06/26/20 12:18 Dose: 12 units Documented by: Metoclopramide HCl (Reglan) 10 mg IVPUSH Q6H PRN PRN Reason: Nausea Lurasidone Hcl [ (Latuda] 40 Mg Tab) 40 mg PO DAILY [facility] Last Admin: 06/26/20 10:27 Dose: 40 mg Documented by: Olanzapine (Zyprexa) 10 mg PO DAILY [facility] Last Admin: 06/26/20 08:33 Dose: 10 mg Documented by: Paroxetine HCl (Paxil) 40 mg PO DAILY [facility] Last Admin: 06/26/20 08:32 Dose: 40 mg Documented by: Sodium Chloride (Saline Flush) 10 ml FLUSH ASDIRECTED PRN PRN Reason: Keep Vein Open Last Admin: 06/26/20 14:31 Dose: 10 ml Documented by: Trazodone HCl (Trazodone) 100 mg PO BEDTIME [facility] Last Admin: 06/25/20 21:19 Dose: 100 mg Documented by: Discontinued Medications Hydrocodone Bitart/Acetaminophen ([place] 325-5 Mg) 1 tab PO Q4H PRN PRN Reason: Pain (mild 1-3) Last Admin: 06/26/20 00:46 Dose: 1 tab Documented by: Hydromorphone HCl (Dilaudid) 2 mg IVPUSH ONETIME ONE Stop: 06/24/20 13:04 Last Admin: 06/24/20 14:04 Dose: 2 mg Documented by: Hydromorphone HCl (Dilaudid) 1 mg IVPUSH Q1H PRN PRN Reason: Pain (moderate 4-6) Last Admin: 06/25/20 13:41 Dose: 1 mg Documented by: Sodium Chloride (Normal Saline) 1,000 mls @ 999 mls/hr IV ASDIRECTED [facility] Sodium Chloride (Normal Saline) 1,000 mls @ 999 mls/hr IV .BOLUS ONE Stop: 06/24/20 11:10 Last Admin: 06/24/20 10:10 Dose: 999 mls/hr Documented by: Sodium Chloride (Normal Saline) 1,000 mls @ 250 mls/hr IV ASDIRECTED [facility] Last Admin: 06/24/20 11:50 Dose: 250 mls/hr Documented by: Piperacillin Sod/Tazobactam (Sod 3.375 gm/ Sodium Chloride) 50 mls @ 100 mls/hr IV Q6H [facility] Stop: 06/24/20 16:00 Last Admin: 06/24/20 13:18 Dose: 100 mls/hr Documented by: Lactated Ringer's (Ringers, Lactated) 1,000 mls @ 125 mls/hr IV ASDIRECTED [facility] Last Infusion: 06/25/20 07:24 Dose: 75 mls/hr Documented by: Lactated Ringer's (Ringers, Lactated) 1,000 mls @ 75 mls/hr IV ASDIRECTED [facility] Last Admin: 06/26/20 08:38 Dose: 75 mls/hr Documented by: Insulin Glargine (Lantus Solostar) 10 units SUBCUT DAILY [facility] Last Admin: 06/26/20 08:30 Dose: 10 units Documented by: Insulin Human Regular (Humulin R) 10 unit IV ONETIME ONE Stop: 06/24/20 10:37 Last Admin: 06/24/20 10:55 Dose: 10 units Documented by: Insulin Human Regular (Humulin R) 8 unit IV ONETIME ONE Stop: 06/24/20 12:02 Last Admin: 06/24/20 12:05 Dose: 8 units Documented by: Iopamidol (Isovue-370 (76%)) 100 ml IV . DIRECTED ONE Stop: 06/24/20 11:02 Last Admin: 06/24/20 11:30 Dose: 100 ml Documented by: Ondansetron HCl (Zofran) 4 mg IVPUSH ONETIME ONE Stop: 06/24/20 14:14 Last Admin: 06/24/20 14:17 Dose: 4 mg Documented by: Ondansetron HCl (Zofran) 4 mg IVPUSH Q4H PRN PRN Reason: Nausea/Vomiting Last Admin: 06/26/20 00:47 Dose: 4 mg Documented by: - Exam General: Lethargic (at times, sems to be more talkative tonight) Lungs: Clear to Auscultation GI/Abdominal Exam: Soft, Non-Tender Sepsis Event Note - Evaluation Sepsis Screening Result: No Definite Risk - Problem List & Annotations (1) Cholecystitis, acute with cholelithiasis SNOMED Code(s): 25389443 Code(s): K80.00 - CALCULUS OF GALLBLADDER W ACUTE CHOLECYST W/O OBSTRUCTION Status: Acute Current Visit: Yes Qualifiers: Biliary obstruction: without biliary obstruction Qualified Code(s): K80.00 - Calculus of gallbladder with acute cholecystitis without obstruction Annotation/Comment:: Per General Surgery - Problem List Review Problem List Initiated/Reviewed/Updated: Yes - My Orders Last 24 Hours: My Active Orders 06/25/20 20:40 Promethazine [Phenergan] 12.5 mg Sodium Chloride 0.9% [Normal Saline] 50 ml IV Q6H 06/26/20 08:14 DC Shabazz Catheter [Urinary Catheter Removal] [RC] PER UNIT ROUTINE 06/26/20 Lunch Full Liquid Diet [DIET] 06/27/20 07:00 CBC WITH AUTO DIFF [HEME] Routine COMPREHENSIVE METABOLIC PN,CMP [CHEM] Routine - Assessment Assessment:: Doing better POD #2 - Plan Plan:: Will cont IV antibiotics, recheck WBC tomorrow
[2020-06-26] MEDS ORDERED: Sodium Chloride 0.9% 250 ML IV SCH (19:00)
[2020-06-26] MEDS: traZODone 100 MG Tab PO SCH (21:38)
[2020-06-27] MEDS: Piperacillin/Tazobactam 3.375 GM in Sodium Chloride 0.9% 50 ML IV SCH ×3 (01:55→13:00)
[2020-06-27] MEDS: Insulin Lispro 100 Unit/ML 3 ML KwikPen SUBCUT SCH ×2 (08:44→12:02)
[2020-06-27] MEDS: busPIRone 15 MG Tab PO SCH (08:46)
[2020-06-27] MEDS: Acetaminophen 500 MG Tab PO SCH ×2 (08:50→14:12)
[2020-06-27] MEDS: PARoxetine 20 MG Tab PO SCH (08:50)
[2020-06-27] MEDS: OLANZapine 5 MG Tab PO SCH (08:51)
[2020-06-27] MEDS ORDERED: Insulin Glargine,Human Rec. Analog 100 Units/ML 3 ML Pen SUBCUT SCH (09:00)
--- NOTE | 2020-06-27 12:25 | PCM.PN ---
- General Info Date of Service: 06/27/20 Functional Status: Reports: Pain Controlled, Tolerating Diet, Ambulating, Urinating - Review of Systems General: Reports: No Symptoms. Denies: Fever Pulmonary: Reports: No Symptoms Gastrointestinal: Reports: No Symptoms - Patient Data Vitals - Most Recent: Last Vital Signs Temp 98.2 F 06/27/20 11:42 Pulse 113 H 06/27/20 11:42 Resp 16 06/27/20 11:42 BP 140/80 06/27/20 11:42 Pulse Ox 100 06/27/20 08:00 Weight - Most Recent: 79.152 kg I&O - Last 24 Hours: Intake & Output 06/26/20 06/27/20 06/27/20 22:59 06:59 14:59 Intake Total 1170 753 Output Total 300 750 Balance 870 3 Lab Results Last 24 Hours: Laboratory Results - last 24 hr 06/26/20 06/26/20 06/27/20 Range/Units 17:00 21:42 06:02 WBC 10.6 (4.5-12.0) X10-3/uL RBC 4.94 (4.30-5.75) x10(6)uL Hgb 14.3 (13.5-17.8) g/dL Hct 42.6 (30.0-51.3) % MCV 86.1 (80-96) fL MCH 29.0 (27.7-33.6) pg MCHC 33.7 (32.2-35.4) g/dL RDW 12.4 (11.5-15.5) % Plt Count 313 (125-369) X10(3)uL MPV 8.9 (7.4-10.4) fL Neut % (Auto) 83.6 H (46-82) % Lymph % (Auto) 9.3 L (13-37) % [place] % (Auto) 6.3 (4-12) % Eos % (Auto) 0 L (1.0-5.0) % Baso % (Auto) 1 (0-2) % Neut # (Auto) 8.8 H (1.6-8.3) # Lymph # (Auto) 1.0 (0.6-5.0) # [place] # (Auto) 0.7 (0.0-1.3) # Eos # (Auto) 0.0 (0.0-0.8) # Baso # (Auto) 0.1 (0.0-0.2) # Sodium (135-145) mmol/L Potassium (3.5-5.3) mmol/L Chloride (100-110) mmol/L Carbon Dioxide (21-32) mmol/L BUN (7-18) mg/dL Creatinine (0.70-1.30) mg/dL Est Cr Clr Drug Dosing mL/min Estimated GFR (MDRD) (>60) BUN/Creatinine Ratio (9-20) Glucose (80-116) mg/dL POC Glucose 201 H 230 H (74-100) mg/dL Calcium (8.6-10.2) mg/dL Total Bilirubin (0.1-1.3) mg/dL AST (5-25) IU/L ALT (12-36) U/L Alkaline Phosphatase (56-112) IU/L Total Protein (6.0-8.0) g/dL Albumin (3.2-4.6) g/dL Globulin g/dL Albumin/Globulin Ratio 06/27/20 06/27/20 Range/Units 06:02 06:36 WBC (4.5-12.0) X10-3/uL RBC (4.30-5.75) x10(6)uL Hgb (13.5-17.8) g/dL Hct (30.0-51.3) % MCV (80-96) fL MCH (27.7-33.6) pg MCHC (32.2-35.4) g/dL RDW (11.5-15.5) % Plt Count (125-369) X10(3)uL MPV (7.4-10.4) fL Neut % (Auto) (46-82) % Lymph % (Auto) (13-37) % [place] % (Auto) (4-12) % Eos % (Auto) (1.0-5.0) % Baso % (Auto) (0-2) % Neut # (Auto) (1.6-8.3) # Lymph # (Auto) (0.6-5.0) # [place] # (Auto) (0.0-1.3) # Eos # (Auto) (0.0-0.8) # Baso # (Auto) (0.0-0.2) # Sodium 138 (135-145) mmol/L Potassium 4.0 (3.5-5.3) mmol/L Chloride 104 (100-110) mmol/L Carbon Dioxide 13 L (21-32) mmol/L BUN 18 (7-18) mg/dL Creatinine 0.9 (0.70-1.30) mg/dL Est Cr Clr Drug Dosing 78.77 mL/min Estimated GFR (MDRD) > 60 (>60) BUN/Creatinine Ratio 20.0 (9-20) Glucose 294 H (80-116) mg/dL POC Glucose 304 H (74-100) mg/dL Calcium 10.0 (8.6-10.2) mg/dL Total Bilirubin 1.0 (0.1-1.3) mg/dL AST 28 H D (5-25) IU/L ALT 58 H (12-36) U/L Alkaline Phosphatase 87 (56-112) IU/L Total Protein 6.7 (6.0-8.0) g/dL Albumin 2.8 L (3.2-4.6) g/dL Globulin 3.9 g/dL Albumin/Globulin Ratio 0.7 Ángel Results Last 24 Hours: Microbiology 06/24/20 14:55 Aerobic Blood Culture - Preliminary Blood - Venous - Lab Draw NO GROWTH AFTER 2 DAYS Anaerobic Blood Culture - Preliminary NO GROWTH AFTER 2 DAYS 06/24/20 14:46 Aerobic Blood Culture - Preliminary Blood - Venous NO GROWTH AFTER 2 DAYS Anaerobic Blood Culture - Preliminary NO GROWTH AFTER 2 DAYS Med Orders - Current: Current Medications Acetaminophen (Tylenol Extra Strength) 1,000 mg PO TID [facility] Last Admin: 06/27/20 08:50 Dose: 1,000 mg Documented by: Albuterol (Ventolin Hfa) 0 gm INH Q4H PRN PRN Reason: Dyspnea Buspirone HCl (Buspar) 15 mg PO BID [facility] Last Admin: 06/27/20 08:46 Dose: 15 mg Documented by: Dextrose/Water (Dextrose 50% In Water) 50 ml IVPUSH ASDIRECTED PRN PRN Reason: Hypoglycemia Glucagon (Glucagen) 1 mg IM ASDIRECTED PRN PRN Reason: Hypoglycemia Piperacillin Sod/Tazobactam (Sod 3.375 gm/ Sodium Chloride) 50 mls @ 100 mls/hr IV Q6H [facility] Last Admin: 06/27/20 06:53 Dose: 100 mls/hr Documented by: Promethazine HCl 12.5 mg/ (Sodium Chloride) 50.5 mls @ 200 mls/hr IV Q6H PRN PRN Reason: Nausea/Vomiting Lactated Ringer's (Ringers, Lactated) 1,000 mls @ 75 mls/hr IV ASDIRECTED [facility] Last Admin: 06/26/20 21:16 Dose: 75 mls/hr Documented by: Sodium Chloride (Normal Saline) 250 mls @ 75 mls/hr IV ASDIRECTED [facility] Last Admin: 06/26/20 21:16 Dose: 75 mls/hr Documented by: Insulin Glargine (Lantus Solostar) 16 units SUBCUT DAILY [facility] Last Admin: 06/27/20 08:47 Dose: 16 units Documented by: Insulin Human Lispro (Humalog) 0 unit SUBCUT TIDMEALS [facility]; Protocol Last Admin: 06/27/20 12:02 Dose: 12 units Documented by: Metoclopramide HCl (Reglan) 10 mg IVPUSH Q6H PRN PRN Reason: Nausea Lurasidone Hcl [ (Latuda] 40 Mg Tab) 40 mg PO DAILY [facility] Last Admin: 06/27/20 08:50 Dose: 40 mg Documented by: Olanzapine (Zyprexa) 10 mg PO DAILY [facility] Last Admin: 06/27/20 08:51 Dose: 10 mg Documented by: Paroxetine HCl (Paxil) 40 mg PO DAILY [facility] Last Admin: 06/27/20 08:50 Dose: 40 mg Documented by: Sodium Chloride (Saline Flush) 10 ml FLUSH ASDIRECTED PRN PRN Reason: Keep Vein Open Last Admin: 06/26/20 14:31 Dose: 10 ml Documented by: Trazodone HCl (Trazodone) 100 mg PO BEDTIME [facility] Last Admin: 06/26/20 21:38 Dose: 100 mg Documented by: Discontinued Medications Hydrocodone Bitart/Acetaminophen ([place] 325-5 Mg) 1 tab PO Q4H PRN PRN Reason: Pain (mild 1-3) Last Admin: 06/26/20 00:46 Dose: 1 tab Documented by: Hydromorphone HCl (Dilaudid) 2 mg IVPUSH ONETIME ONE Stop: 10/20/20 13:04 Last Admin: 06/24/20 14:04 Dose: 2 mg Documented by: Hydromorphone HCl (Dilaudid) 1 mg IVPUSH Q1H PRN PRN Reason: Pain (moderate 4-6) Last Admin: 06/25/20 13:41 Dose: 1 mg Documented by: Sodium Chloride (Normal Saline) 1,000 mls @ 999 mls/hr IV ASDIRECTED [facility] Sodium Chloride (Normal Saline) 1,000 mls @ 999 mls/hr IV .BOLUS ONE Stop: 06/24/20 11:10 Last Admin: 06/24/20 10:10 Dose: 999 mls/hr Documented by: Sodium Chloride (Normal Saline) 1,000 mls @ 250 mls/hr IV ASDIRECTED [facility] Last Admin: 06/24/20 11:50 Dose: 250 mls/hr Documented by: Piperacillin Sod/Tazobactam (Sod 3.375 gm/ Sodium Chloride) 50 mls @ 100 mls/hr IV Q6H [facility] Stop: 06/24/20 16:00 Last Admin: 06/24/20 13:18 Dose: 100 mls/hr Documented by: Lactated Ringer's (Ringers, Lactated) 1,000 mls @ 125 mls/hr IV ASDIRECTED [facility] Last Infusion: 06/25/20 07:24 Dose: 75 mls/hr Documented by: Lactated Ringer's (Ringers, Lactated) 1,000 mls @ 75 mls/hr IV ASDIRECTED [facility] Last Admin: 06/26/20 08:38 Dose: 75 mls/hr Documented by: Insulin Glargine (Lantus Solostar) 10 units SUBCUT DAILY [facility] Last Admin: 06/26/20 08:30 Dose: 10 units Documented by: Insulin Human Regular (Humulin R) 10 unit IV ONETIME ONE Stop: 06/24/20 10:37 Last Admin: 06/24/20 10:55 Dose: 10 units Documented by: Insulin Human Regular (Humulin R) 8 unit IV ONETIME ONE Stop: 06/24/20 12:02 Last Admin: 06/24/20 12:05 Dose: 8 units Documented by: Iopamidol (Isovue-370 (76%)) 100 ml IV . DIRECTED ONE Stop: 06/24/20 11:02 Last Admin: 06/24/20 11:30 Dose: 100 ml Documented by: Ondansetron HCl (Zofran) 4 mg IVPUSH ONETIME ONE Stop: 06/24/20 14:14 Last Admin: 06/24/20 14:17 Dose: 4 mg Documented by: Ondansetron HCl (Zofran) 4 mg IVPUSH Q4H PRN PRN Reason: Nausea/Vomiting Last Admin: 06/26/20 00:47 Dose: 4 mg Documented by: - Exam General: Alert, Oriented Lungs: Clear to Auscultation, Normal Respiratory Effort GI/Abdominal Exam: Soft, Non-Tender Sepsis Event Note - Evaluation Sepsis Screening Result: No Definite Risk - Focused Exam Vital Signs: Vital Signs Temp Pulse Resp BP Pulse Ox Pulse Ox 06/27/20 11:42 98.2 F 113 H 16 140/80 06/27/20 08:00 97.5 F 104 H 18 148/95 H 100 06/27/20 04:00 97.7 F 101 H 20 155/96 H 98 06/27/20 02:00 97 - Problem List & Annotations (1) Cholecystitis, acute with cholelithiasis SNOMED Code(s): 44167319 Code(s): K80.00 - CALCULUS OF GALLBLADDER W ACUTE CHOLECYST W/O OBSTRUCTION Status: Acute Current Visit: Yes Qualifiers: Biliary obstruction: without biliary obstruction Qualified Code(s): K80.00 - Calculus of gallbladder with acute cholecystitis without obstruction Annotation/Comment:: Per General Surgery - Problem List Review Problem List Initiated/Reviewed/Updated: Yes - My Orders Last 24 Hours: My Active Orders 06/26/20 19:00 Sodium Chloride 0.9% [Normal Saline] 250 ml IV ASDIRECTED 06/27/20 Lunch Full Liquid Diet [DIET] - Assessment Assessment:: Doing better POD #2 Doing Well POD #3,ok to discharge - Plan Plan:: Will cont IV antibiotics, recheck WBC tomorrow Discharge to home
--- NOTE | 2020-06-27 12:30 | PCM.DCSUM1 ---
Discharge Summary - Hospital Course Brief History: Presented to ED with few day hx of abd pain. CT and US showed acute cholecystitis. WBC 22K. Taken to Surgery and found to have acute gangrenous cholecystitis. Kept on IZ Zosyn and WBC is now normal, cultures negative. Tolerating po now. Blood sugars are mostly in the 200's. - Discharge Data Discharge Date: 06/27/20 Discharge Disposition: Home, Self-Care 01 Condition: Good - Referral to Home Health Primary Care Physician: Hugo Naylor MD - Discharge Diagnosis/Problem(s) (1) Cholecystitis, acute with cholelithiasis SNOMED Code(s): 90412966 ICD Code: K80.00 - CALCULUS OF GALLBLADDER W ACUTE CHOLECYST W/O OBSTRUCTION Status: Acute Current Visit: Yes Problem Details: Per General Surgery Qualifiers: Biliary obstruction: without biliary obstruction Qualified Code(s): K80.00 - Calculus of gallbladder with acute cholecystitis without obstruction - Patient Summary/Data Operative Procedure(s) Performed: [place] Consults: Consultations 06/24/20 17:56 Consult to Physician [CONS] Routine Consulting Provider: Hugo Naylor Call Completed to Consulting Physician: No: Will in am Reason for Consult: Manage BS Recommended Follow-up Testing/Procedures: f/u with Dr Hernandez 1 week Hospital Course: As above. Is now eating and feeling better. Wants to go home - Patient Instructions Diet: Diabetic Diet Showering/Bathing: May Shower Wound/Incision Care: Keep Operative Site/Wound Site Clean and Dry - Discharge Plan *PRESCRIPTION DRUG MONITORING PROGRAM REVIEWED*: Not Applicable *COPY OF PRESCRIPTION DRUG MONITORING REPORT IN PATIENT TATUM: Not Applicable Home Medications: Home Meds Lurasidone HCl [Latuda] 40 mg PO DAILY 12/16/18 [History] PARoxetine HCl [Paxil] 40 mg PO DAILY 12/16/18 [History] busPIRone HCl [Buspirone HCl] 15 mg PO BID 12/16/18 [History] traZODone HCl [Trazodone HCl] 100 mg PO BEDTIME 12/16/18 [History] Albuterol [Ventolin HFA] 2 puff IH Q4H PRN 06/24/20 [History] Insulin NPH Hum/Reg Insulin Hm [Novolin 70-30 Flexpen] 10 unit SQ QPM 06/24/20 [History] Insulin NPH Hum/Reg Insulin Hm [Novolin 70-30 Flexpen] 20 unit SQ ACBREAKFAST 06/24/20 [History] OLANZapine [Zyprexa] 10 mg PO DAILY 06/24/20 [History] atorvaSTATin Calcium [Lipitor] 40 mg PO DAILY 06/24/20 [History] lisinopriL [Lisinopril] 5 mg PO DAILY 06/24/20 [History] metFORMIN [Glucophage] 1,000 mg PO BIDMEALS 06/24/20 [History] Patient Handouts: How to Use an Incentive Spirometer, Laparoscopic Cholecystectomy, Care After, [id number], Fall Prevention in Hospitals, Adult Forms: ED Department Discharge Referrals: Hugo Naylor MD [Primary Care Provider] - - Discharge Summary/Plan Comment DC Time >30 min.: No - Patient Data Vitals - Most Recent: Last Vital Signs Temp 98.2 F 06/27/20 11:42 Pulse 113 H 06/27/20 11:42 Resp 16 06/27/20 11:42 BP 140/80 06/27/20 11:42 Pulse Ox 100 06/27/20 08:00 Weight - Most Recent: 79.152 kg I&O - Last 24 hours: Intake & Output 06/26/20 06/27/20 06/27/20 22:59 06:59 14:59 Intake Total 1170 753 Output Total 300 750 Balance 870 3 Lab Results - Last 24 hrs: Laboratory Results - last 24 hr 06/26/20 06/26/20 06/27/20 Range/Units 17:00 21:42 06:02 WBC 10.6 (4.5-12.0) X10-3/uL RBC 4.94 (4.30-5.75) x10(6)uL Hgb 14.3 (13.5-17.8) g/dL Hct 42.6 (30.0-51.3) % MCV 86.1 (80-96) fL MCH 29.0 (27.7-33.6) pg MCHC 33.7 (32.2-35.4) g/dL RDW 12.4 (11.5-15.5) % Plt Count 313 (125-369) X10(3)uL MPV 8.9 (7.4-10.4) fL Neut % (Auto) 83.6 H (46-82) % Lymph % (Auto) 9.3 L (13-37) % Pratt % (Auto) 6.3 (4-12) % Eos % (Auto) 0 L (1.0-5.0) % Baso % (Auto) 1 (0-2) % Neut # (Auto) 8.8 H (1.6-8.3) # Lymph # (Auto) 1.0 (0.6-5.0) # Pratt # (Auto) 0.7 (0.0-1.3) # Eos # (Auto) 0.0 (0.0-0.8) # Baso # (Auto) 0.1 (0.0-0.2) # Sodium (135-145) mmol/L Potassium (3.5-5.3) mmol/L Chloride (100-110) mmol/L Carbon Dioxide (21-32) mmol/L BUN (7-18) mg/dL Creatinine (0.70-1.30) mg/dL Est Cr Clr Drug Dosing mL/min Estimated GFR (MDRD) (>60) BUN/Creatinine Ratio (9-20) Glucose (80-116) mg/dL POC Glucose 201 H 230 H (74-100) mg/dL Calcium (8.6-10.2) mg/dL Total Bilirubin (0.1-1.3) mg/dL AST (5-25) IU/L ALT (12-36) U/L Alkaline Phosphatase (56-112) IU/L Total Protein (6.0-8.0) g/dL Albumin (3.2-4.6) g/dL Globulin g/dL Albumin/Globulin Ratio 06/27/20 06/27/20 Range/Units 06:02 06:36 WBC (4.5-12.0) X10-3/uL RBC (4.30-5.75) x10(6)uL Hgb (13.5-17.8) g/dL Hct (30.0-51.3) % MCV (80-96) fL MCH (27.7-33.6) pg MCHC (32.2-35.4) g/dL RDW (11.5-15.5) % Plt Count (125-369) X10(3)uL MPV (7.4-10.4) fL Neut % (Auto) (46-82) % Lymph % (Auto) (13-37) % Pratt % (Auto) (4-12) % Eos % (Auto) (1.0-5.0) % Baso % (Auto) (0-2) % Neut # (Auto) (1.6-8.3) # Lymph # (Auto) (0.6-5.0) # Pratt # (Auto) (0.0-1.3) # Eos # (Auto) (0.0-0.8) # Baso # (Auto) (0.0-0.2) # Sodium 138 (135-145) mmol/L Potassium 4.0 (3.5-5.3) mmol/L Chloride 104 (100-110) mmol/L Carbon Dioxide 13 L (21-32) mmol/L BUN 18 (7-18) mg/dL Creatinine 0.9 (0.70-1.30) mg/dL Est Cr Clr Drug Dosing 78.77 mL/min Estimated GFR (MDRD) > 60 (>60) BUN/Creatinine Ratio 20.0 (9-20) Glucose 294 H (80-116) mg/dL POC Glucose 304 H (74-100) mg/dL Calcium 10.0 (8.6-10.2) mg/dL Total Bilirubin 1.0 (0.1-1.3) mg/dL AST 28 H D (5-25) IU/L ALT 58 H (12-36) U/L Alkaline Phosphatase 87 (56-112) IU/L Total Protein 6.7 (6.0-8.0) g/dL Albumin 2.8 L (3.2-4.6) g/dL Globulin 3.9 g/dL Albumin/Globulin Ratio 0.7 MARCUS Results - Last 24 hrs: Microbiology 06/24/20 14:55 Aerobic Blood Culture - Preliminary Blood - Venous - Lab Draw NO GROWTH AFTER 2 DAYS Anaerobic Blood Culture - Preliminary NO GROWTH AFTER 2 DAYS 06/24/20 14:46 Aerobic Blood Culture - Preliminary Blood - Venous NO GROWTH AFTER 2 DAYS Anaerobic Blood Culture - Preliminary NO GROWTH AFTER 2 DAYS Med Orders - Current: Current Medications Acetaminophen (Tylenol Extra Strength) 1,000 mg PO TID [facility]ST[facility] Last Admin: 06/27/20 08:50 Dose: 1,000 mg Documented by: Albuterol (Ventolin Hfa) 0 gm INH Q4H PRN PRN Reason: Dyspnea Buspirone HCl (Buspar) 15 mg PO BID [facility] Last Admin: 06/27/20 08:46 Dose: 15 mg Documented by: Dextrose/Water (Dextrose 50% In Water) 50 ml IVPUSH ASDIRECTED PRN PRN Reason: Hypoglycemia Glucagon (Glucagen) 1 mg IM ASDIRECTED PRN PRN Reason: Hypoglycemia Piperacillin Sod/Tazobactam (Sod 3.375 gm/ Sodium Chloride) 50 mls @ 100 mls/hr IV Q6H [facility] Last Admin: 06/27/20 06:53 Dose: 100 mls/hr Documented by: Promethazine HCl 12.5 mg/ (Sodium Chloride) 50.5 mls @ 200 mls/hr IV Q6H PRN PRN Reason: Nausea/Vomiting Lactated Ringer's (Ringers, Lactated) 1,000 mls @ 75 mls/hr IV ASDIRECTED [facility] Last Admin: 06/26/20 21:16 Dose: 75 mls/hr Documented by: Sodium Chloride (Normal Saline) 250 mls @ 75 mls/hr IV ASDIRECTED [facility] Last Admin: 06/26/20 21:16 Dose: 75 mls/hr Documented by: Insulin Glargine (Lantus Solostar) 16 units SUBCUT DAILY [facility] Last Admin: 06/27/20 08:47 Dose: 16 units Documented by: Insulin Human Lispro (Humalog) 0 unit SUBCUT TIDMEALS [facility]; Protocol Last Admin: 06/27/20 12:02 Dose: 12 units Documented by: Metoclopramide HCl (Reglan) 10 mg IVPUSH Q6H PRN PRN Reason: Nausea Lurasidone Hcl [ (Latuda] 40 Mg Tab) 40 mg PO DAILY [facility] Last Admin: 06/27/20 08:50 Dose: 40 mg Documented by: Olanzapine (Zyprexa) 10 mg PO DAILY [facility] Last Admin: 06/27/20 08:51 Dose: 10 mg Documented by: Paroxetine HCl (Paxil) 40 mg PO DAILY [facility] Last Admin: 06/27/20 08:50 Dose: 40 mg Documented by: Sodium Chloride (Saline Flush) 10 ml FLUSH ASDIRECTED PRN PRN Reason: Keep Vein Open Last Admin: 06/26/20 14:31 Dose: 10 ml Documented by: Trazodone HCl (Trazodone) 100 mg PO BEDTIME [facility] Last Admin: 06/26/20 21:38 Dose: 100 mg Documented by: Discontinued Medications Hydrocodone Bitart/Acetaminophen (Bovey 325-5 Mg) 1 tab PO Q4H PRN PRN Reason: Pain (mild 1-3) Last Admin: 06/26/20 00:46 Dose: 1 tab Documented by: Hydromorphone HCl (Dilaudid) 2 mg IVPUSH ONETIME ONE Stop: 06/24/20 13:04 Last Admin: 06/24/20 14:04 Dose: 2 mg Documented by: Hydromorphone HCl (Dilaudid) 1 mg IVPUSH Q1H PRN PRN Reason: Pain (moderate 4-6) Last Admin: 06/25/20 13:41 Dose: 1 mg Documented by: Sodium Chloride (Normal Saline) 1,000 mls @ 999 mls/hr IV ASDIRECTED [facility] Sodium Chloride (Normal Saline) 1,000 mls @ 999 mls/hr IV .BOLUS ONE Stop: 06/24/20 11:10 Last Admin: 06/24/20 10:10 Dose: 999 mls/hr Documented by: Sodium Chloride (Normal Saline) 1,000 mls @ 250 mls/hr IV ASDIRECTED [facility] Last Admin: 06/24/20 11:50 Dose: 250 mls/hr Documented by: Piperacillin Sod/Tazobactam (Sod 3.375 gm/ Sodium Chloride) 50 mls @ 100 mls/hr IV Q6H [facility] Stop: 06/24/20 16:00 Last Admin: 06/24/20 13:18 Dose: 100 mls/hr Documented by: Lactated Ringer's (Ringers, Lactated) 1,000 mls @ 125 mls/hr IV ASDIRECTED [facility] Last Infusion: 06/25/20 07:24 Dose: 75 mls/hr Documented by: Lactated Ringer's (Ringers, Lactated) 1,000 mls @ 75 mls/hr IV ASDIRECTED [facility] Last Admin: 06/26/20 08:38 Dose: 75 mls/hr Documented by: Insulin Glargine (Lantus Solostar) 10 units SUBCUT DAILY [facility] Last Admin: 06/26/20 08:30 Dose: 10 units Documented by: Insulin Human Regular (Humulin R) 10 unit IV ONETIME ONE Stop: 06/24/20 10:37 Last Admin: 06/24/20 10:55 Dose: 10 units Documented by: Insulin Human Regular (Humulin R) 8 unit IV ONETIME ONE Stop: 06/24/20 12:02 Last Admin: 06/24/20 12:05 Dose: 8 units Documented by: Iopamidol ([id number] (76%)) 100 ml IV . DIRECTED ONE Stop: 06/24/20 11:02 Last Admin: 06/24/20 11:30 Dose: 100 ml Documented by: Ondansetron HCl (Zofran) 4 mg IVPUSH ONETIME ONE Stop: 06/24/20 14:14 Last Admin: 06/24/20 14:17 Dose: 4 mg Documented by: Ondansetron HCl (Zofran) 4 mg IVPUSH Q4H PRN PRN Reason: Nausea/Vomiting Last Admin: 06/26/20 00:47 Dose: 4 mg Documented by:
== END 2020-06-27 16:30 | disposition home or self-care (01) | DRG 419 ==
LOC: FB.ED 09:45 → FB.MS 13:16
PROVIDERS: ADMIT Surgery; ATTEND Surgery
PROC: 0FT44ZZ Resection of Gallbladder, Percutaneous Endoscopic Approach (ICD-10-PCS; principal; 2020-06-24)
DX: K80.00 Calculus of gallbladder with acute cholecystitis without obstruction (principal); K82.A1 Gangrene of gallbladder in cholecystitis; E78.00 Pure hypercholesterolemia, unspecified; I10 Essential (primary) hypertension; Z20.828 Contact with and (suspected) exposure to other viral communicable diseases; H54.7 Unspecified visual loss; E78.5 Hyperlipidemia, unspecified; E11.65 Type 2 diabetes mellitus with hyperglycemia; E11.42 Type 2 diabetes mellitus with diabetic polyneuropathy; Z79.899 Other long term (current) drug therapy; Z79.4 Long term (current) use of insulin
CPT/HCPCS: 00790-QZ; 36415; 51702; 70450; 71045; 74177; 76705; 80048; 80053; 81001; 82272; 82803; 82947; 82962; 83036; 83605; 83690; 84484; 85025; 86140; 87040; 87070; 87075; 87205; 88304; 93005; 94150; 99284; 99285-25; A9270-GY; J0131; J0330; J1170; J1815; J1815-GY; J2001; J2310; J2405; J2543; J2704; J3010; J3490; J7030; J7050; J7120; Q9967; U0002

== ENCOUNTER 2020-06-29 17:09 | Emergency (ER) | payer MEDICAID ==
[2020-06-29] MEDS ORDERED: Sodium Chloride 0.9% 10 ML Syringe FLUSH PRN (17:23)
[2020-06-29] MEDS ORDERED: Sodium Chloride 0.9% 1,000 ML IV ONE ×3 (17:24→18:28)
[2020-06-29] MEDS ORDERED: Lidocaine 2% HCl 6 ML JEL.PF.APP ONE (17:29)
[2020-06-29] MEDS ORDERED: Sodium Chloride 0.9% 1,000 ML IV SCH ×2 (17:30→17:40)
[2020-06-29 17:45] LABS: PH VENOUS,POC 7.09 pH Units (7.32-7.43)
[2020-06-29 17:46] LABS: BASE EXCESS VENOUS,POC -22 mmol/L (-2-3); HCO3 VENOUS,POC 8 mmol/L (21-29); PCO2 VENOUS,POC 25 mmHg (41-51)
[2020-06-29] MEDS ORDERED: 50% Dextrose in Water 50 ML Syringe IVPUSH PRN (17:50)
[2020-06-29] MEDS ORDERED: Glucagon,Human Recombinant 1 MG Vial IM PRN (17:50)
[2020-06-29] MEDS ORDERED: Insulin Regular, Human 100 Units/ML 3 ML Vial IV ONE (17:50)
[2020-06-29] MEDS ORDERED: cefTRIAXone 2 GM Vial IVPUSH ONE (18:08)
--- NOTE | 2020-06-29 18:19 | EDM.PDOC ---
ED HPI GENERAL MEDICAL PROBLEM - General Chief Complaint: General Time Seen by Provider: 06/29/20 17:10 Source of Information: Reports: Patient, Significant Other History Limitations: Reports: Altered Mental Status (Patient confused and ill. He cannot provide me with any history. All the history comes from the patient's significant other who brought him to the emergency department.) - History of Present Illness INITIAL COMMENTS - FREE TEXT/NARRATIVE: 60-year-old male who had acute cholecystitis and had cholecystectomy performed on 06/25/2020 and was in the hospital until 06/27/2020. He was discharged that evening and seemed to be doing okay. He was okay all through the day yesterday according to the patient's significant other until the later evening when he began to have slurred speech and seemed to be somewhat "out of it". He apparently was restless at that time and has been restless all through the night last night. This morning he seemed to be more confused and "out of it" and had vomiting 1. He had not really been taking any food but had been taking liquids and during the day today he has been sleeping most of the day and tonight the patient's significant other was going to take him to a friend's house which is on a single level because she felt that he would be available to be cared for better there and she had a very difficult time getting him into the car because of severe weakness. And once he was at the friend's house they determined that he was quite ill and felt that she needed to bring him to the emergency department for evaluation. When he arrives here, he is listless and has poor responsiveness with a blood pressure of 7080 systolic and a pulse rate in the 1:30 to 140 range with irregular rhythm. He has a ketotic odor about his breath. He is unable to give me any history and he is unable to he has pain are not and he is unable to quantitate or qualitate this as well. No reported fevers. No reported chest pain. He has only had the emesis 1. There are no other associated signs or symptoms. There are no other modifying factors. 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.) - Related Data Allergies Allergy/AdvReac Type Severity Reaction Status Date / Time No Known Allergies Allergy Verified 06/24/20 09:56 Home Meds: Home Meds Lurasidone HCl [Latuda] 40 mg PO DAILY 12/16/18 [History] PARoxetine HCl [Paxil] 40 mg PO DAILY 12/16/18 [History] busPIRone HCl [Buspirone HCl] 15 mg PO BID 12/16/18 [History] traZODone HCl [Trazodone HCl] 100 mg PO BEDTIME 12/16/18 [History] Albuterol [Ventolin HFA] 2 puff IH Q4H PRN 06/24/20 [History] Insulin NPH Hum/Reg Insulin Hm [Novolin 70-30 Flexpen] 10 unit SQ QPM 06/24/20 [History] Insulin NPH Hum/Reg Insulin Hm [Novolin 70-30 Flexpen] 20 unit SQ ACBREAKFAST 06/24/20 [History] OLANZapine [Zyprexa] 10 mg PO DAILY 06/24/20 [History] atorvaSTATin Calcium [Lipitor] 40 mg PO DAILY 06/24/20 [History] lisinopriL [Lisinopril] 5 mg PO DAILY 06/24/20 [History] metFORMIN [Glucophage] 1,000 mg PO BIDMEALS 06/24/20 [History] Past Medical History HEENT History: Reports: Impaired Vision Cardiovascular History: Reports: High Cholesterol, Hypertension Respiratory History: Reports: Bronchitis, Recurrent Neurological History: Reports: Concussion, Neuropathy, Diabetic Psychiatric History: Reports: Depression Endocrine/Metabolic History: Reports: Diabetes, Type I - Infectious Disease History Infectious Disease History: Reports: Measles, Mumps, Novel Coronavirus - Past Surgical History GI Surgical History: Reports: Cholecystectomy, Colonoscopy, EGD Social & Family History - Tobacco Use Tobacco Use Status *Q: Unknown Ever Used Tobacco (Nonsmoker) - Caffeine Use Caffeine Use: Reports: None - Alcohol Use Alcohol Use History: Yes Alcohol Use Frequency: Rarely (No alcohol use for the past year according to significant other) ED ROS GENERAL - Review of Systems Review Of Systems: Unable To Obtain Reason Not Obtained: Patient critically ill with altered mental status ED EXAM, GENERAL - Physical Exam Exam: See Below Exam Limited By: No Limitations General Appearance: WD/WN (Confused), Lethargic, Moderate Distress, Other (Appear somewhat ill.) Eye Exam: Bilateral Eye: EOMI, Normal Inspection Ears: Normal External Exam Ear Exam: Bilateral Ear: Auricle Normal Nose: Normal Inspection, Normal Mucosa, No Blood Throat/Mouth: No Airway Compromise, Other (Dry mucous membranes. Ketotic breath) Head: Atraumatic, Normocephalic Neck: Normal Inspection, Supple, Non-Tender, Full Range of Motion Respiratory/Chest: Lungs Clear, Normal Breath Sounds, No Accessory Muscle Use, Other (Increased respiratory rate) Cardiovascular: Normal Peripheral Pulses, No JVD, No Murmur, Tachycardia, Irregularly Irregular Peripheral Pulses: 2+: Radial (L), Radial (R) GI/Abdominal: Soft, Non-Tender, No Mass, Abnormal Bowel Sounds (Diminished bowel sounds) Back Exam: Normal Inspection, Full Range of Motion Extremities: Normal Inspection, Normal Range of Motion, Non-Tender, No Pedal Edema, Normal Capillary Refill Neurological: No Motor/Sensory Deficits, Inattentive, Confused, Disoriented, Slow to Respond Skin Exam: Intact, No Rash, Cool, Ecchymosis (Ecchymosis on the anterior abdominal wall in areas of the laparoscopic cholecystectomy.), Pallor #1 Interpretation EKG Date: 06/29/20 Time: 17:12 Rhythm: A-Fib Rate (Beats/Min): 140 Filer: Normal P-Wave: Absent QRS: Normal ST-T: Other (Diffuse ST-T abnormalities.) QT: Prolonged Comparison: Change From Previous EKG (Compared to an EKG performed on 06/25/2020, the atrial fibrillation is new.) Course - Vital Signs Last Recorded V/S: Last Vital Signs Temp 35.0 C L 06/29/20 17:45 Pulse 139 H 06/29/20 17:10 Resp 32 H 06/29/20 17:10 BP 90/56 L 06/29/20 17:10 Pulse Ox 100 06/29/20 17:10 - Orders/Labs/Meds Orders: Active Orders 24 hr Category Date Time Status Shabazz Catheter Insertion [Insert Urinary Catheter] [OM. Care 06/29/20 17:30 Ordered PC] Q24H Abdomen Pelvis wo Cont [CT] Stat Exams 06/29/20 18:09 Taken Chest 1V Frontal [CR] Stat Exams 06/29/20 17:54 Taken OR PCXR-No Charge-PICC/Central [CR] Stat Exams 06/29/20 19:44 Taken CULTURE BLOOD [BC] Urgent Lab 06/29/20 18:40 Results CULTURE BLOOD [BC] Urgent Lab 06/29/20 19:15 Received PATIENT RETYPE [BBK] Stat Lab 06/29/20 17:12 Results TYPE AND SCREEN [BBK] Stat Lab 06/29/20 17:12 Results Blood Culture x2 Reflex Set [OM.PC] Urgent Oth 06/29/20 18:06 Ordered Peripheral IV Insertion Adult [OM.PC] Routine Oth 06/29/20 17:23 Ordered Labs: Laboratory Tests 06/29/20 06/29/20 06/29/20 Range/Units 17:11 17:12 17:12 WBC 22.2 H (4.5-12.0) X10-3/uL RBC 5.30 (4.30-5.75) x10(6)uL Hgb 15.7 (13.5-17.8) g/dL Hct 47.1 (30.0-51.3) % MCV 88.9 (80-96) fL MCH 29.7 (27.7-33.6) pg MCHC 33.4 (32.2-35.4) g/dL RDW 12.7 (11.5-15.5) % Plt Count 518 H (125-369) X10(3)uL MPV 9.5 (7.4-10.4) fL Neut % (Auto) 86.6 H (46-82) % Lymph % (Auto) 5.7 L (13-37) % Bath % (Auto) 6.9 (4-12) % Eos % (Auto) 0 L (1.0-5.0) % Baso % (Auto) 1 (0-2) % Neut # (Auto) 19.2 H (1.6-8.3) # Lymph # (Auto) 1.3 (0.6-5.0) # Bath # (Auto) 1.5 H (0.0-1.3) # Eos # (Auto) 0.0 (0.0-0.8) # Baso # (Auto) 0.2 (0.0-0.2) # PT (9.0-11.1) sec INR (1.00-1.24) APTT (24.4-33.2) SECONDS POC VBG pH (7.32-7.43) pH Units POC VBG pCO2 (41-51) mmHg POC VBG HCO3 (21-29) mmol/L VBG Base Excess (-2-3) mmol/L O2 Delivery Device Sodium 134 L (135-145) mmol/L Potassium 4.4 (3.5-5.3) mmol/L Chloride 97 L D (100-110) mmol/L Carbon Dioxide 7 L* (21-32) mmol/L BUN 34 H D (7-18) mg/dL Creatinine 1.7 H (0.70-1.30) mg/dL Est Cr Clr Drug Dosing TNP Estimated GFR (MDRD) 41 L (>60) BUN/Creatinine Ratio 20.0 (9-20) Glucose 542 H* D (80-116) mg/dL POC Glucose (74-100) mg/dL Lactic Acid (0.4-2.0) mmol/L Calcium 12.6 H D (8.6-10.2) mg/dL Magnesium 2.1 (1.8-2.5) mg/dL Total Bilirubin 0.8 (0.1-1.3) mg/dL AST 10 D (5-25) IU/L ALT 33 D (12-36) U/L Alkaline Phosphatase 98 (56-112) IU/L Troponin I 7.6 (4.0-60.3) pg/mL C-Reactive Protein (0.5-0.9) mg/dL Total Protein 6.5 (6.0-8.0) g/dL Albumin 3.0 L (3.2-4.6) g/dL Globulin 3.5 g/dL Albumin/Globulin Ratio 0.9 Lipase (73-393) U/L Urine Color (YELLOW) Urine Appearance (CLEAR) Urine pH (5.0-6.5) Ur Specific [place] (1.010-1.025) Urine Protein (NEGATIVE) mg/dL Urine Glucose (UA) (NORMAL) mg/dL Urine Ketones (NEGATIVE) mg/dL Urine Occult Blood (NEGATIVE) Urine Nitrite (NEGATIVE) Urine Bilirubin (NEGATIVE) Urine Urobilinogen (NEGATIVE) mg/dL Ur Leukocyte Esterase (NEGATIVE) Urine RBC (0-5) Urine WBC (0-5) Ur Squamous Epith Cells (NS,R,O) Urine Bacteria (NS) Fine Granular Casts (NS) Coarse Granular Casts (NS) Blood Type 06/29/20 06/29/20 06/29/20 Range/Units 17:12 17:12 17:12 WBC (4.5-12.0) X10-3/uL RBC (4.30-5.75) x10(6)uL Hgb (13.5-17.8) g/dL Hct (30.0-51.3) % MCV (80-96) fL MCH (27.7-33.6) pg MCHC (32.2-35.4) g/dL RDW (11.5-15.5) % Plt Count (125-369) X10(3)uL MPV (7.4-10.4) fL Neut % (Auto) (46-82) % Lymph % (Auto) (13-37) % Bath % (Auto) (4-12) % Eos % (Auto) (1.0-5.0) % Baso % (Auto) (0-2) % Neut # (Auto) (1.6-8.3) # Lymph # (Auto) (0.6-5.0) # Bath # (Auto) (0.0-1.3) # Eos # (Auto) (0.0-0.8) # Baso # (Auto) (0.0-0.2) # PT (9.0-11.1) sec INR (1.00-1.24) APTT (24.4-33.2) SECONDS POC VBG pH (7.32-7.43) pH Units POC VBG pCO2 (41-51) mmHg POC VBG HCO3 (21-29) mmol/L VBG Base Excess (-2-3) mmol/L O2 Delivery Device Sodium (135-145) mmol/L Potassium (3.5-5.3) mmol/L Chloride (100-110) mmol/L Carbon Dioxide (21-32) mmol/L BUN (7-18) mg/dL Creatinine (0.70-1.30) mg/dL Est Cr Clr Drug Dosing Estimated GFR (MDRD) (>60) BUN/Creatinine Ratio (9-20) Glucose (80-116) mg/dL POC Glucose (74-100) mg/dL Lactic Acid 4.4 H* (0.4-2.0) mmol/L Calcium (8.6-10.2) mg/dL Magnesium (1.8-2.5) mg/dL Total Bilirubin (0.1-1.3) mg/dL AST (5-25) IU/L ALT (12-36) U/L Alkaline Phosphatase (56-112) IU/L Troponin I (4.0-60.3) pg/mL C-Reactive Protein 2.4 H (0.5-0.9) mg/dL Total Protein (6.0-8.0) g/dL Albumin (3.2-4.6) g/dL Globulin g/dL Albumin/Globulin Ratio Lipase 128 (73-393) U/L Urine Color (YELLOW) Urine Appearance (CLEAR) Urine pH (5.0-6.5) Ur Specific [place] (1.010-1.025) Urine Protein (NEGATIVE) mg/dL Urine Glucose (UA) (NORMAL) mg/dL Urine Ketones (NEGATIVE) mg/dL Urine Occult Blood (NEGATIVE) Urine Nitrite (NEGATIVE) Urine Bilirubin (NEGATIVE) Urine Urobilinogen (NEGATIVE) mg/dL Ur Leukocyte Esterase (NEGATIVE) Urine RBC (0-5) Urine WBC (0-5) Ur Squamous Epith Cells (NS,R,O) Urine Bacteria (NS) Fine Granular Casts (NS) Coarse Granular Casts (NS) Blood Type O POSITIVE 06/29/20 06/29/20 06/29/20 Range/Units 17:12 17:12 17:21 WBC (4.5-12.0) X10-3/uL RBC (4.30-5.75) x10(6)uL Hgb (13.5-17.8) g/dL Hct (30.0-51.3) % MCV (80-96) fL MCH (27.7-33.6) pg MCHC (32.2-35.4) g/dL RDW (11.5-15.5) % Plt Count (125-369) X10(3)uL MPV (7.4-10.4) fL Neut % (Auto) (46-82) % Lymph % (Auto) (13-37) % Bath % (Auto) (4-12) % Eos % (Auto) (1.0-5.0) % Baso % (Auto) (0-2) % Neut # (Auto) (1.6-8.3) # Lymph # (Auto) (0.6-5.0) # Bath # (Auto) (0.0-1.3) # Eos # (Auto) (0.0-0.8) # Baso # (Auto) (0.0-0.2) # PT 11.6 H (9.0-11.1) sec INR 1.08 (1.00-1.24) APTT 24.5 (24.4-33.2) SECONDS POC VBG pH 7.09 L* (7.32-7.43) pH Units POC VBG pCO2 25 L (41-51) mmHg POC VBG HCO3 8 L (21-29) mmol/L VBG Base Excess -22 L (-2-3) mmol/L O2 Delivery Device Room air Sodium (135-145) mmol/L Potassium (3.5-5.3) mmol/L Chloride (100-110) mmol/L Carbon Dioxide (21-32) mmol/L BUN (7-18) mg/dL Creatinine (0.70-1.30) mg/dL Est Cr Clr Drug Dosing Estimated GFR (MDRD) (>60) BUN/Creatinine Ratio (9-20) Glucose (80-116) mg/dL POC Glucose 493 H* (74-100) mg/dL Lactic Acid (0.4-2.0) mmol/L Calcium (8.6-10.2) mg/dL Magnesium (1.8-2.5) mg/dL Total Bilirubin (0.1-1.3) mg/dL AST (5-25) IU/L ALT (12-36) U/L Alkaline Phosphatase (56-112) IU/L Troponin I (4.0-60.3) pg/mL C-Reactive Protein (0.5-0.9) mg/dL Total Protein (6.0-8.0) g/dL Albumin (3.2-4.6) g/dL Globulin g/dL Albumin/Globulin Ratio Lipase (73-393) U/L Urine Color (YELLOW) Urine Appearance (CLEAR) Urine pH (5.0-6.5) Ur Specific [place] (1.010-1.025) Urine Protein (NEGATIVE) mg/dL Urine Glucose (UA) (NORMAL) mg/dL Urine Ketones (NEGATIVE) mg/dL Urine Occult Blood (NEGATIVE) Urine Nitrite (NEGATIVE) Urine Bilirubin (NEGATIVE) Urine Urobilinogen (NEGATIVE) mg/dL Ur Leukocyte Esterase (NEGATIVE) Urine RBC (0-5) Urine WBC (0-5) Ur Squamous Epith Cells (NS,R,O) Urine Bacteria (NS) Fine Granular Casts (NS) Coarse Granular Casts (NS) Blood Type 06/29/20 06/29/20 06/29/20 Range/Units 17:36 18:23 18:49 WBC (4.5-12.0) X10-3/uL RBC (4.30-5.75) x10(6)uL Hgb (13.5-17.8) g/dL Hct (30.0-51.3) % MCV (80-96) fL MCH (27.7-33.6) pg MCHC (32.2-35.4) g/dL RDW (11.5-15.5) % Plt Count (125-369) X10(3)uL MPV (7.4-10.4) fL Neut % (Auto) (46-82) % Lymph % (Auto) (13-37) % Bath % (Auto) (4-12) % Eos % (Auto) (1.0-5.0) % Baso % (Auto) (0-2) % Neut # (Auto) (1.6-8.3) # Lymph # (Auto) (0.6-5.0) # Bath # (Auto) (0.0-1.3) # Eos # (Auto) (0.0-0.8) # Baso # (Auto) (0.0-0.2) # PT (9.0-11.1) sec INR (1.00-1.24) APTT (24.4-33.2) SECONDS POC VBG pH (7.32-7.43) pH Units POC VBG pCO2 (41-51) mmHg POC VBG HCO3 (21-29) mmol/L VBG Base Excess (-2-3) mmol/L O2 Delivery Device Sodium (135-145) mmol/L Potassium (3.5-5.3) mmol/L Chloride (100-110) mmol/L Carbon Dioxide (21-32) mmol/L BUN (7-18) mg/dL Creatinine (0.70-1.30) mg/dL Est Cr Clr Drug Dosing Estimated GFR (MDRD) (>60) BUN/Creatinine Ratio (9-20) Glucose (80-116) mg/dL POC Glucose 485 H* 433 H* (74-100) mg/dL Lactic Acid (0.4-2.0) mmol/L Calcium (8.6-10.2) mg/dL Magnesium (1.8-2.5) mg/dL Total Bilirubin (0.1-1.3) mg/dL AST (5-25) IU/L ALT (12-36) U/L Alkaline Phosphatase (56-112) IU/L Troponin I (4.0-60.3) pg/mL C-Reactive Protein (0.5-0.9) mg/dL Total Protein (6.0-8.0) g/dL Albumin (3.2-4.6) g/dL Globulin g/dL Albumin/Globulin Ratio Lipase (73-393) U/L Urine Color Yellow (YELLOW) Urine Appearance Slightly cloudy (CLEAR) Urine pH 5.0 (5.0-6.5) Ur Specific [place] 1.025 (1.010-1.025) Urine Protein Trace (NEGATIVE) mg/dL Urine Glucose (UA) >1000 H (NORMAL) mg/dL Urine Ketones 150 H (NEGATIVE) mg/dL Urine Occult Blood Negative (NEGATIVE) Urine Nitrite Negative (NEGATIVE) Urine Bilirubin Negative (NEGATIVE) Urine Urobilinogen Normal (NEGATIVE) mg/dL Ur Leukocyte Esterase Negative (NEGATIVE) Urine RBC 0-5 (0-5) Urine WBC 0-5 (0-5) Ur Squamous Epith Cells Occasional (NS,R,O) Urine Bacteria Not seen (NS) Fine Granular Casts Moderate H (NS) Coarse Granular Casts Moderate H (NS) Blood Type Meds: Medications Discontinued Medications Generic Name Dose Route Start Last Admin Trade Name Freq PRN Reason Stop Dose Admin Ceftriaxone Sodium 2 gm 10/25/20 18:08 06/29/20 21:28 Rocephin IVPUSH 06/29/20 18:09 Not Given ONETIME ONE Dextrose/Water 50 ml 06/29/20 17:50 Dextrose 50% In Water IVPUSH ASDIRECTED PRN Hypoglycemia Glucagon 1 mg 06/29/20 17:50 Glucagen IM ASDIRECTED PRN Hypoglycemia Sodium Chloride 1,000 mls @ 999 mls/hr 06/29/20 17:24 06/29/20 17:18 Normal Saline IV 06/29/20 18:24 999 mls/hr .BOLUS ONE Administration Sodium Chloride 1,000 mls @ 150 mls/hr 06/29/20 17:30 06/29/20 17:30 Normal Saline IV 150 mls/hr ASDIRECTED CRISTINA Administration Sodium Chloride 1,000 mls @ 999 mls/hr 06/29/20 17:40 06/29/20 17:40 Normal Saline IV 999 mls/hr ASDIRECTED CRISTINA Administration Insulin Human Regular 100 unit 100 mls @ 1 mls/hr 06/29/20 18:00 06/29/20 18:45 / Sodium Chloride IV 1 unit/hr ASDIRECTED CRISTINA 1 mls/hr Administration Protocol 1 UNIT/HR Sodium Chloride 1,000 mls @ 999 mls/hr 06/29/20 17:53 06/29/20 18:19 Normal Saline IV 06/29/20 18:53 999 mls/hr .BOLUS ONE Administration Sodium Chloride 1,000 mls @ 999 mls/hr 06/29/20 18:28 06/29/20 19:30 Normal Saline IV 06/29/20 19:28 999 mls/hr .BOLUS ONE Administration Norepinephrine Bitartrate 4 mg 250 mls @ 7.5 mls/hr 06/29/20 19:15 06/29/20 19:55 / Dextrose/Water IV 5 mcg/min TITRATE CRISTINA 18.75 mls/hr Titration Protocol 2 MCG/MIN Amiodarone HCl/Dextrose 150 mg 100 mls @ 400 mls/hr 06/29/20 19:18 06/29/20 19:21 / Premix IV 06/29/20 19:32 400 mls/hr NOW ONE Administration Amiodarone HCl/Dextrose Confirm 06/29/20 19:20 06/29/20 21:27 Nexterone In Dextrose 150 Mg/100 Ml Administered 06/29/20 19:21 Not Given Dose 100 mls @ as directed IV .STK-MED ONE Insulin Human Regular 20 unit 06/29/20 17:50 06/29/20 18:07 Humulin R IV 06/29/20 17:51 20 unit ONETIME ONE Administration Lidocaine HCl 10 ml 06/29/20 17:29 06/29/20 17:38 Glydo .XX 06/29/20 17:30 6 ml ONETIME ONE Administration Sodium Chloride 10 ml 06/29/20 17:23 06/29/20 17:15 Saline Flush FLUSH 10 ml ASDIRECTED PRN Administration Keep Vein Open - Radiology Interpretation Free Text/Narrative:: Portable chest x-ray showed low lung volumes but no infiltrate. - Re-Assessments/Exams Free Text/Narrative Re-Assessment/Exam: 06/29/20 17:45: Patient has evidence of DKA with a pH of 7.09 and a bicarbonate of 7. The creatinine is 1.7. The glucose is 542. Lactic acid is 4.4. His hemoglobin is normal. His white count is 22,000. He is being given normal saline as a bolus 2 L and his blood pressure which was in the 70-80 systolic range is now in the 90-100 systolic range. A Shabazz catheter has been placed and he is producing good urine. The patient will be given insulin IV and placed on an insulin drip. The patient needs a level of care and specially services care which are not available at [facility]. He will need transfer to a facility with these services available ((ICU, critical care medicine). I discussed this with the patient's significant other and she has directed me to discuss his case with the doctors at [facility] in [place]. 06/29/20 18:15: I have discussed the patient's case with Dr. Mckeon, hospitalist at [facility] in [place], and he has agreed to accept the patient in transfer. We'll continue IV fluid resuscitation. He was a blood cultures 2 obtained and will be given Rocephin 1 g IV. He also be sent for a CT scan of his abdomen and pelvis. A portable chest x-ray has been performed and showed no acute abnormality. The patient will be transferred via [facility] ambulance service to [facility] for direct admission. This will be following the CT scan of his abdomen and pelvis. We will continue close monitoring and adjust therapy as dated by the patient's clinical course. 06/29/20 19:05: Patient is back from CT scan of the abdomen and pelvis and I don't see anything of a catastrophic nature. The official reading is pending obviously at this point. He was in the 100 systolic range and is now in the 80 systolic range and appears to be more agitated he is still sating at 99% on room air. The patient appears to be decompensating somewhat and will need tucker and IV pressors. I will have anesthesia come in to assist and I will place patient on Levophed drip. I we will also be ordering amiodarone 150 mg IV. We will continue IV fluid resuscitation with normal saline as well. If the patient continues with hypotension and instability, he will need air ambulance transferred. I have called and discussed this with Dr. Mckeon at [facility] in [place] and made him aware of the patient's deterioration. 06/29/20 20:01: Patient continued to decompensate and with the aid of SHANKAR Khanna, the patient was intubated. Please see the WELCOME HOSTESS's note. The patient had further decompensation with blood pressure in the 60-70 range and Levaquin that was started. The patient has received amiodarone 150 mg IV and air ambulance had been called and has now arrived to transport the patient to [facility] direct admission to the ICU. I discussed the patient's case with Dr. Yo, center line cutter operator, at [facility] in [place] and he will be expecting the patient and has accepted him as well. Currently the patient has a blood pressure is 70 systolic range and we are titrating his Osei fed up. We are continuing IV fluid resusci tation with normal saline. Portable chest x-ray following the patient shows good ET tube placement and an NG tube had also been placed and was appropriately positioned within the stomach. She had be noted that during intubation, the patient had emesis and it was almost coffee-ground appearing material. The NG tube evacuated another 500 mL of this material after placement. The patient will be transported via air ambulance at present. Departure - Departure Time of Disposition: 20:18 Disposition: DC/Tfer to [facility] 02 Condition: Critical Clinical Impression: Acute encephalopathy Diabetic ketoacidosis Qualifiers: Diabetes mellitus type: type 2 Diabetes mellitus complication detail: with coma Qualified Code(s): E11.11 - Type 2 diabetes mellitus with ketoacidosis with coma Hypotension Qualifiers: Hypotension type: unspecified hypotension type Qualified Code(s): I95.9 - Hypotension, unspecified Respiratory failure Qualifiers: Chronicity: acute Respiratory failure complication: unspecified whether with hypoxia or hypercapnia Qualified Code(s): J96.00 - Acute respiratory failure, unspecified whether with hypoxia or hypercapnia - Discharge Information Referrals: Hugo Naylor MD [Primary Care Provider] - Forms: ED Department Discharge Critical Care Note - Critical Care Note Total Time (mins): 150 Comments: Patient was continually attended and had a need for close and careful monitoring with frequent adjustments and changes in his care based on a rapidly evolving situation involving progressive instability. Therefore critical care time was 150 minutes. Sepsis Event Note (ED) - Focused Exam Vital Signs: Vital Signs Temp Pulse Resp BP Pulse Ox 06/29/20 17:45 35.0 C L 06/29/20 17:10 139 H 32 H 90/56 L 100 - My Orders Last 24 Hours: My Active Orders 06/29/20 17:12 PATIENT RETYPE [BBK] Stat TYPE AND SCREEN [BBK] Stat 06/29/20 17:23 Peripheral IV Insertion Adult [OM.PC] Routine 06/29/20 17:30 Shabazz Catheter Insertion [Insert Urinary Catheter] [OM.PC] Q24H 06/29/20 17:54 Chest 1V Frontal [CR] Stat 06/29/20 18:06 Blood Culture x2 Reflex Set [OM.PC] Urgent 06/29/20 18:09 Abdomen Pelvis wo Cont [CT] Stat 06/29/20 18:40 CULTURE BLOOD [BC] Urgent 06/29/20 19:15 CULTURE BLOOD [BC] Urgent 06/29/20 19:44 OR PCXR-No Charge-PICC/Central [CR] Stat - Assessment/Plan Last 24 Hours: My Active Orders 06/29/20 17:12 PATIENT RETYPE [BBK] Stat TYPE AND SCREEN [BBK] Stat 06/29/20 17:23 Peripheral IV Insertion Adult [OM.PC] Routine 06/29/20 17:30 Shabazz Catheter Insertion [Insert Urinary Catheter] [OM.PC] Q24H 06/29/20 17:54 Chest 1V Frontal [CR] Stat 06/29/20 18:06 Blood Culture x2 Reflex Set [OM.PC] Urgent 06/29/20 18:09 Abdomen Pelvis wo Cont [CT] Stat 06/29/20 18:40 CULTURE BLOOD [BC] Urgent 06/29/20 19:15 CULTURE BLOOD [BC] Urgent 06/29/20 19:44 OR PCXR-No Charge-PICC/Central [CR] Stat
[2020-06-29] MEDS ORDERED: Norepinephrine 4 MG in Dextrose 5% in Water 246 ML IV SCH ×2 (19:15)
[2020-06-29] MEDS ORDERED: Amiodarone In Dextrose,Iso-Osm 150 MG in Premix Bag 1 BAG IV ONE ×2 (19:18)
== END 2020-06-29 20:18 ==
LOC: FB.ED 17:09
DX: E13.11 Other specified diabetes mellitus with ketoacidosis with coma (principal); I95.9 Hypotension, unspecified; J96.00 Acute respiratory failure, unspecified whether with hypoxia or hypercapnia; G93.40 Encephalopathy, unspecified; I10 Essential (primary) hypertension; S30.1XXA Contusion of abdominal wall, initial encounter; E13.40 Other specified diabetes mellitus with diabetic neuropathy, unspecified; E78.00 Pure hypercholesterolemia, unspecified; F32.9 Major depressive disorder, single episode, unspecified; Z90.49 Acquired absence of other specified parts of digestive tract; Z79.899 Other long term (current) drug therapy; X58.XXXA Exposure to other specified factors, initial encounter
CPT/HCPCS: 31500; 36415; 43752; 51702; 71045; 74176; 80053; 81001; 82962; 83605; 83690; 83735; 84484; 85025; 85610; 85730; 86140; 86850; 86900; 86901; 87040; 96365; 96375; 99291-25; 99292; A9270-GY; J0282; J1815-GY; J7030; J7060